=== PATIENT | female | born 1935 | race Caucasian/White ===

== ENCOUNTER 2016-12-23 00:22 | Observation (INO) | payer MEDICARE, MEDICAID ==
[2016-12-23] MEDS ORDERED: Ondansetron 4 MG/2 ML SDV IVPUSH ONE ×4 (00:41→06:37)
[2016-12-23] MEDS ORDERED: Sodium Chloride 0.9% 1,000 ML IV SCH (00:45)
[2016-12-23] MEDS ORDERED: Labetalol 20 MG/4 ML Syringe IVPUSH ONE (00:52)
[2016-12-23] MEDS ORDERED: NS + KCl 20mEq/L 1,000 ML IV SCH ×2 (02:00→06:30)
[2016-12-23] MEDS ORDERED: methylPREDNISolone Sodium Succinate 125 MG/2 ML SDV IVPUSH ONE (03:36)
[2016-12-23] MEDS ORDERED: Amoxicillin/Clavulanate K 875-125 MG Tab PO ONE (05:54)
[2016-12-23] MEDS ORDERED: Sodium Chloride 0.45% with KCl 1,000 ML IV SCH (06:15)
--- NOTE | 2016-12-23 06:30 | EDM.PDOC ---
ED HPI GENERAL MEDICAL PROBLEM - General Chief Complaint: Neuro Symptoms/Deficits Stated Complaint: MEDICAL VIA [facility] Time Seen by Provider: 12/23/16 00:30 Source of Information: Reports: Patient, [facility] Records History Limitations: Reports: Physical Impairment (hearing loss) - History of Present Illness INITIAL COMMENTS - FREE TEXT/NARRATIVE: History of present illness: [81-year-old female presenting from [facility] with sudden loss of hearing in her left ear. She usually cannot hear out of her right ear with a history of mastoid surgery on that one at some point. This came on according to the care center right after she received some Imodium. Whether that was causative I am uncertain but that is one possibility. 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 While here was noted that her abdomen was quite distended and that she was periodically vomiting and that her blood pressure was very erratic running quite high at times and then suddenly dropping. She does not become hypotensive though. I treated one of her high blood pressure readings with labetalol once and it came right down. In reviewing her medical records from the correction she does have a history of ulcerative colitis and intermittent A. 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 We've been communicating with her by writing notes to her which she can read and she denies being in pain. She's received IV fluids and intermittent doses of Zofran for her vomiting. Review of systems: As per history of present illness and below otherwise all systems reviewed and negative. Past medical history: As per history of present illness and as reviewed below otherwise noncontributory. Surgical history: As per history of present illness and as reviewed below otherwise noncontributory. Social history: No reported history of drug or alcohol abuse. Family history: As per history of present illness and as reviewed below otherwise noncontributory. Physical exam: HEENT: Atraumatic, normocephalic, pupils reactive, negative for conjunctival pallor or scleral icterus, mucous membranes moist, throat clear, neck supple, nontender, trachea midline. TMs both fusion unremarkable Lungs: Clear to auscultation, breath sounds equal bilaterally Heart: S1S2, regular, Abdomen: Soft and distended with hypoactive bowel sounds with no definitive tenderness to palpation Pelvis: Stable nontender. Genitourinary: Deferred. Rectal: Deferred. Extremities:She does display bilateral pitting edema left greater than right she is on warfarin and therapeutic Neuro: Awake, alert, Exam nonfocal other than this acute left hearing loss Diagnostics: [She is received a CBC which is unremarkable complete metabolic panel which is showing little bit of hypokalemia with a potassium of 3.1 she's had a head CT which is unremarkable she's had an abdominal pelvic CT without contrast which is showing mild left abdominal mesenteric fat stranding likely infectious or inflammatory in nature and also cholelithiasis with no evidence of cholecystitis at least on the CT report. Urinalysis is unremarkable] Therapeutics: [She has been receiving IV fluids while here in intermittent doses of Zofran] Impression: [Acute sudden left hearing loss Evidence for inflammatory versus infectious bowel disease on CT Cholelithiasis] Plan: [I spoke with Dr. Avila patient will be admitted and treated for her inflammatory bowel process and continued IV fluids will be provided along with intermittent doses of Zofran. Further workup may be useful and indicated.] Definitive disposition and diagnosis as appropriate pending reevaluation and review of above. denies pain Pain Score (Numeric/FACES): 0 - Related Data Allergies Allergy/AdvReac Type Severity Reaction Status Date / Time amoxicillin Allergy Other Verified 12/23/16 00:39 Home Meds: Home Meds Ceravite 1 tab PO DAILY 12/23/16 [History] Cyanocobalamin (Vitamin B-12) [Cyanocobalamin Injection] 1,000 mcg IM ASDIRECTED 12/23/16 [History] Lidocaine HCl [Aspercreme] 1 applic TOP BID 12/23/16 [History] Losartan/Hydrochlorothiazide [Losartan-HCTZ 100-12.5 MG] 1 tab PO DAILY [History] Mesalamine [Delzicol] 400 mg PO TID 12/23/16 [History] RX: Acetaminophen [Tylenol Extra Strength] 1,000 mg PO DAILY 12/23/16 [History] RX: Aspirin [Adult Low Dose Aspirin EC] 81 mg PO DAILY 12/23/16 [History] RX: Calcium Carbonate/Vitamin D3 [Calcium 600 + Vit D 400 Softgl] 1 tab PO BID 12/23/16 [History] RX: Loratadine 10 mg PO DAILY 12/23/16 [History] RX: Potassium Chloride 20 meq PO BID 12/23/16 [History] RX: Ranitidine [Zantac] 150 mg PO DAILY 12/23/16 [History] RX: Tamsulosin HCl [Flomax] 0.4 mg PO DAILY 12/23/16 [History] RX: Warfarin [Coumadin] 5 mg PO ASDIRECTED 12/23/16 [History] RX: Warfarin [Coumadin] 7.5 mg PO ASDIRECTED 12/23/16 [History] RX: risperiDONE 0.5 mg PO TID 12/23/16 [History] Vit C/[place] Ac/Lut/Copper/ZnOx [Preservision Lutein Softgel] 2 tab PO DAILY 12/23 [History] Past Medical History HEENT History: Reports: Hard of Hearing, Impaired Vision, Macular Degeneration, Other (See Below) 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 Cardiovascular History: Reports: Blood Clots/VTE/DVT, Hypertension Gastrointestinal History: Reports: Other (See Below) Other Gastrointestinal History: ulcerative colitis Genitourinary History: Reports: Urinary Incontinence 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: Musculoskeletal History: Reports: Osteoarthritis, Other (See Below) Other Musculoskeletal History: 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 Psychiatric History: Reports: Other (See Below) Other Psychiatric History: schizo Affective disorder Hematologic History: Reports: B12 Deficiency - Past Surgical History HEENT Surgical History: Reports: None, Other (See Below) Other HEENT Surgeries/Procedures: right mastoidectomy Neurological Surgical History: Reports: Scoliosis Musculoskeletal Surgical History: Reports: Knee Replacement, Other (See Below) Other Musculoskeletal Surgeries/Procedures:: right knee replacement Social & Family History - Tobacco Use Smoking Status *Q: Unknown Ever Smoked - Recreational Drug Use Recreational Drug Use: No ED ROS GENERAL - Review of Systems Review Of Systems: ROS reveals no pertinent complaints other than HPI. ED EXAM, NEURO - Physical Exam Exam: See Below Course - Vital Signs Last Recorded V/S: Last Vital Signs Temp 35.6 C 12/23/16 05:08 Pulse 83 12/23/16 05:08 Resp 16 12/23/16 05:08 BP 193/103 H 12/23/16 05:08 Pulse Ox 94 L 12/23/16 05:08 - Orders/Labs/Meds Orders: Active Orders 24 hr Category Date Time Status EKG Documentation Completion [RC] ASDIRECTED Care 12/23/16 00:32 Active Abdomen Pelvis wo Cont [CT] Stat Exams 12/23/16 04:12 Taken Chest 1V Frontal [CR] Stat Exams 12/23/16 00:31 Taken Head wo Cont [CT] Stat Exams 12/23/16 00:29 Taken CORTISOL [REF] Stat Lab 12/23/16 00:20 Received LYME AB SCREEN RFLX [REF] Stat Lab 12/23/16 00:38 Received Sodium Chloride 0.9% with KCl 20 mEq @ 75 mL/Hr (1000 Med 12/23/16 06:30 Ordered mL) NS + KCl 20mEq/L [Normal Saline with 20 mEq KCl] 1,000 ml IV ASDIRECTED EKG 12 Lead [EK] Stat Ther 12/23/16 00:31 Ordered Medication Orders Potassium Chloride/Sodium Chloride (Normal Saline With 20 Meq Kcl) 1,000 mls @ 75 mls/hr IV ASDIRECTED ATA Last Admin: 12/23/16 06:25 Dose: 75 mls/hr Labs: Laboratory Tests 12/23/16 12/23/16 12/23/16 Range/Units 00:20 00:20 00:20 WBC 7.1 (4.5-11.0) K/uL RBC 4.45 (3.30-5.50) M/uL Hgb 13.3 (12.0-15.0) g/dL Hct 40.0 (36.0-48.0) % MCV 90 (80-98) fL MCH 30 (27-31) pg MCHC 33 (32-36) % Plt Count 208 (150-400) K/uL Neut % (Auto) 45 (36-66) % Lymph % (Auto) 39 (24-44) % [place] % (Auto) 12 H (2-6) % Eos % (Auto) 4 (2-4) % Baso % (Auto) 1 (0-1) % ESR (0-25) mm/hr PT 32.0 H (9.5-12.0) sec INR 2.86 H (0.80-1.20) D-Dimer, Quantitative (0.0-400.0) ng/mL Sodium 134 L (140-148) mmol/L Potassium 3.1 L (3.6-5.2) mmol/L Chloride 95 L (100-108) mmol/L Carbon Dioxide 31 (21-32) mmol/L Anion Gap 11.1 (5.0-14.0) mmol/L BUN 16 (7-18) mg/dL Creatinine 0.7 (0.6-1.0) mg/dL Est Cr Clr Drug Dosing TNP Estimated GFR (MDRD) > 60 (>60) Glucose 114 H (74-106) mg/dL Lactic Acid (0.4-2.0) mmol/L Calcium 9.3 (8.5-10.1) mg/dL Total Bilirubin 0.2 (0.2-1.0) mg/dL AST 26 (15-37) U/L ALT 2 L (12-78) U/L Alkaline Phosphatase 86 (46-116) U/L C-Reactive Protein (0.0-0.3) mg/dL Total Protein 7.7 (6.4-8.2) g/dL Albumin 3.5 (3.4-5.0) g/dL Globulin 4.2 H (2.3-3.5) g/dL Albumin/Globulin Ratio 0.8 L (1.2-2.2) Amylase (25-115) U/L Lipase (73-393) U/L TSH, Ultra Sensitive (0.358-3.740) uIU/mL Urine Color Urine Appearance Urine pH (4.5-8.0) Ur Specific [place] (1.008-1.030) Urine Protein (NEGATIVE) mg/dL Urine Glucose (UA) (NEGATIVE) mg/dL Urine Ketones (NEGATIVE) mg/dL Urine Occult Blood (NEGATIVE) Urine Nitrite (NEGATIVE) Urine Bilirubin (NEGATIVE) Urine Urobilinogen (NORMAL) mg/dL Ur Leukocyte Esterase (NEGATIVE) Urine RBC (0-5) Urine WBC (0-5) Ur Epithelial Cells Amorphous Sediment Urine Bacteria Urine Mucus Salicylates (2.0-20.0) mg/dL Urine Opiates Screen (NEGATIVE) Ur Oxycodone Screen (NEGATIVE) Urine Methadone Screen (NEGATIVE) Ur Propoxyphene Screen (NEGATIVE) Acetaminophen (10.0-30.0) ug/mL Ur Barbiturates Screen (NEGATIVE) Ur Tricyclics Screen (NEGATIVE) Ur Phencyclidine Scrn (NEGATIVE) Ur Amphetamine Screen (NEGATIVE) U Methamphetamines Scrn (NEGATIVE) Urine MDMA Screen (NEGATIVE) U Benzodiazepines Scrn (NEGATIVE) U Cocaine Metab Screen (NEGATIVE) U Marijuana (THC) Screen (NEGATIVE) 12/23/16 12/23/16 12/23/16 Range/Units 00:20 00:20 00:20 WBC (4.5-11.0) K/uL RBC (3.30-5.50) M/uL Hgb (12.0-15.0) g/dL Hct (36.0-48.0) % MCV (80-98) fL MCH (27-31) pg MCHC (32-36) % Plt Count (150-400) K/uL Neut % (Auto) (36-66) % Lymph % (Auto) (24-44) % [place] % (Auto) (2-6) % Eos % (Auto) (2-4) % Baso % (Auto) (0-1) % ESR (0-25) mm/hr PT (9.5-12.0) sec INR (0.80-1.20) D-Dimer, Quantitative < 100 (0.0-400.0) ng/mL Sodium (140-148) mmol/L Potassium (3.6-5.2) mmol/L Chloride (100-108) mmol/L Carbon Dioxide (21-32) mmol/L Anion Gap (5.0-14.0) mmol/L BUN (7-18) mg/dL Creatinine (0.6-1.0) mg/dL Est Cr Clr Drug Dosing Estimated GFR (MDRD) (>60) Glucose (74-106) mg/dL Lactic Acid 1.6 (0.4-2.0) mmol/L Calcium (8.5-10.1) mg/dL Total Bilirubin (0.2-1.0) mg/dL AST (15-37) U/L ALT (12-78) U/L Alkaline Phosphatase (46-116) U/L C-Reactive Protein 0.18 (0.0-0.3) mg/dL Total Protein (6.4-8.2) g/dL Albumin (3.4-5.0) g/dL Globulin (2.3-3.5) g/dL Albumin/Globulin Ratio (1.2-2.2) Amylase (25-115) U/L Lipase (73-393) U/L TSH, Ultra Sensitive (0.358-3.740) uIU/mL Urine Color Urine Appearance Urine pH (4.5-8.0) Ur Specific [place] (1.008-1.030) Urine Protein (NEGATIVE) mg/dL Urine Glucose (UA) (NEGATIVE) mg/dL Urine Ketones (NEGATIVE) mg/dL Urine Occult Blood (NEGATIVE) Urine Nitrite (NEGATIVE) Urine Bilirubin (NEGATIVE) Urine Urobilinogen (NORMAL) mg/dL Ur Leukocyte Esterase (NEGATIVE) Urine RBC (0-5) Urine WBC (0-5) Ur Epithelial Cells Amorphous Sediment Urine Bacteria Urine Mucus Salicylates (2.0-20.0) mg/dL Urine Opiates Screen (NEGATIVE) Ur Oxycodone Screen (NEGATIVE) Urine Methadone Screen (NEGATIVE) Ur Propoxyphene Screen (NEGATIVE) Acetaminophen 0.0 L (10.0-30.0) ug/mL Ur Barbiturates Screen (NEGATIVE) Ur Tricyclics Screen (NEGATIVE) Ur Phencyclidine Scrn (NEGATIVE) Ur Amphetamine Screen (NEGATIVE) U Methamphetamines Scrn (NEGATIVE) Urine MDMA Screen (NEGATIVE) U Benzodiazepines Scrn (NEGATIVE) U Cocaine Metab Screen (NEGATIVE) U Marijuana (THC) Screen (NEGATIVE) 12/23/16 12/23/16 12/23/16 Range/Units 00:20 00:20 00:20 WBC (4.5-11.0) K/uL RBC (3.30-5.50) M/uL Hgb (12.0-15.0) g/dL Hct (36.0-48.0) % MCV (80-98) fL MCH (27-31) pg MCHC (32-36) % Plt Count (150-400) K/uL Neut % (Auto) (36-66) % Lymph % (Auto) (24-44) % [place] % (Auto) (2-6) % Eos % (Auto) (2-4) % Baso % (Auto) (0-1) % ESR (0-25) mm/hr PT (9.5-12.0) sec INR (0.80-1.20) D-Dimer, Quantitative (0.0-400.0) ng/mL Sodium (140-148) mmol/L Potassium (3.6-5.2) mmol/L Chloride (100-108) mmol/L Carbon Dioxide (21-32) mmol/L Anion Gap (5.0-14.0) mmol/L BUN (7-18) mg/dL Creatinine (0.6-1.0) mg/dL Est Cr Clr Drug Dosing Estimated GFR (MDRD) (>60) Glucose (74-106) mg/dL Lactic Acid (0.4-2.0) mmol/L Calcium (8.5-10.1) mg/dL Total Bilirubin (0.2-1.0) mg/dL AST (15-37) U/L ALT (12-78) U/L Alkaline Phosphatase (46-116) U/L C-Reactive Protein (0.0-0.3) mg/dL Total Protein (6.4-8.2) g/dL Albumin (3.4-5.0) g/dL Globulin (2.3-3.5) g/dL Albumin/Globulin Ratio (1.2-2.2) Amylase 46 (25-115) U/L Lipase 240 (73-393) U/L TSH, Ultra Sensitive 5.870 H (0.358-3.740) uIU/mL Urine Color Urine Appearance Urine pH (4.5-8.0) Ur Specific [place] (1.008-1.030) Urine Protein (NEGATIVE) mg/dL Urine Glucose (UA) (NEGATIVE) mg/dL Urine Ketones (NEGATIVE) mg/dL Urine Occult Blood (NEGATIVE) Urine Nitrite (NEGATIVE) Urine Bilirubin (NEGATIVE) Urine Urobilinogen (NORMAL) mg/dL Ur Leukocyte Esterase (NEGATIVE) Urine RBC (0-5) Urine WBC (0-5) Ur Epithelial Cells Amorphous Sediment Urine Bacteria Urine Mucus Salicylates 2.7 (2.0-20.0) mg/dL Urine Opiates Screen (NEGATIVE) Ur Oxycodone Screen (NEGATIVE) Urine Methadone Screen (NEGATIVE) Ur Propoxyphene Screen (NEGATIVE) Acetaminophen (10.0-30.0) ug/mL Ur Barbiturates Screen (NEGATIVE) Ur Tricyclics Screen (NEGATIVE) Ur Phencyclidine Scrn (NEGATIVE) Ur Amphetamine Screen (NEGATIVE) U Methamphetamines Scrn (NEGATIVE) Urine MDMA Screen (NEGATIVE) U Benzodiazepines Scrn (NEGATIVE) U Cocaine Metab Screen (NEGATIVE) U Marijuana (THC) Screen (NEGATIVE) 12/23/16 12/23/16 12/23/16 Range/Units 00:31 02:05 02:05 WBC (4.5-11.0) K/uL RBC (3.30-5.50) M/uL Hgb (12.0-15.0) g/dL Hct (36.0-48.0) % MCV (80-98) fL MCH (27-31) pg MCHC (32-36) % Plt Count (150-400) K/uL Neut % (Auto) (36-66) % Lymph % (Auto) (24-44) % [place] % (Auto) (2-6) % Eos % (Auto) (2-4) % Baso % (Auto) (0-1) % ESR 14 (0-25) mm/hr PT (9.5-12.0) sec INR (0.80-1.20) D-Dimer, Quantitative (0.0-400.0) ng/mL Sodium (140-148) mmol/L Potassium (3.6-5.2) mmol/L Chloride (100-108) mmol/L Carbon Dioxide (21-32) mmol/L Anion Gap (5.0-14.0) mmol/L BUN (7-18) mg/dL Creatinine (0.6-1.0) mg/dL Est Cr Clr Drug Dosing Estimated GFR (MDRD) (>60) Glucose (74-106) mg/dL Lactic Acid (0.4-2.0) mmol/L Calcium (8.5-10.1) mg/dL Total Bilirubin (0.2-1.0) mg/dL AST (15-37) U/L ALT (12-78) U/L Alkaline Phosphatase (46-116) U/L C-Reactive Protein (0.0-0.3) mg/dL Total Protein (6.4-8.2) g/dL Albumin (3.4-5.0) g/dL Globulin (2.3-3.5) g/dL Albumin/Globulin Ratio (1.2-2.2) Amylase (25-115) U/L Lipase (73-393) U/L TSH, Ultra Sensitive (0.358-3.740) uIU/mL Urine Color Yellow Urine Appearance Clear Urine pH 8.0 (4.5-8.0) Ur Specific [place] 1.015 (1.008-1.030) Urine Protein 30 H (NEGATIVE) mg/dL Urine Glucose (UA) Normal (NEGATIVE) mg/dL Urine Ketones Negative (NEGATIVE) mg/dL Urine Occult Blood Moderate (NEGATIVE) Urine Nitrite Negative (NEGATIVE) Urine Bilirubin Negative (NEGATIVE) Urine Urobilinogen Normal (NORMAL) mg/dL Ur Leukocyte Esterase Negative (NEGATIVE) Urine RBC 0-5 (0-5) Urine WBC 0-5 (0-5) Ur Epithelial Cells Rare Amorphous Sediment Not seen Urine Bacteria Few Urine Mucus Not seen Salicylates (2.0-20.0) mg/dL Urine Opiates Screen Negative (NEGATIVE) Ur Oxycodone Screen Negative (NEGATIVE) Urine Methadone Screen Negative (NEGATIVE) Ur Propoxyphene Screen Negative (NEGATIVE) Acetaminophen (10.0-30.0) ug/mL Ur Barbiturates Screen Negative (NEGATIVE) Ur Tricyclics Screen Negative (NEGATIVE) Ur Phencyclidine Scrn Negative (NEGATIVE) Ur Amphetamine Screen Negative (NEGATIVE) U Methamphetamines Scrn Negative (NEGATIVE) Urine MDMA Screen Negative (NEGATIVE) U Benzodiazepines Scrn Negative (NEGATIVE) U Cocaine Metab Screen Negative (NEGATIVE) U Marijuana (THC) Screen Negative (NEGATIVE) Meds: Medications Generic Name Dose Route Start Last Admin Trade Name Freq PRN Reason Stop Dose Admin Potassium Chloride/Sodium Chloride 1,000 mls @ 75 mls/hr 12/23/16 06:30 12/23 06:25 Normal Saline With 20 Meq Kcl IV 75 mls/hr ASDIRECTED ATA Administration Discontinued Medications Generic Name Dose Route Start Last Admin Trade Name Freq PRN Reason Stop Dose Admin Amoxicillin/Clavulanate Potassium 1 tab 12/23/16 05:54 12/23/16 06:25 Augmentin 875 Mg/125 Mg PO 12/23/16 05:55 Not Given ONETIME ONE Sodium Chloride 1,000 mls @ 125 mls/hr 12/23/16 00:45 12/23/16 01:08 Normal Saline IV 125 mls/hr ASDIRECTED ATA Administration Potassium Chloride/Sodium Chloride 1,000 mls @ 300 mls/hr 12/23/16 02:00 02:58 Normal Saline With 20 Meq Kcl IV 300 mls/hr ASDIRECTED ATA Administration Potassium Chloride/Sodium Chloride 1,000 mls @ 100 mls/hr 12/23/16 06:15 1/2 Ns With 20 Meq Kcl IV ASDIRECTED ATA Labetalol HCl 20 mg 12/23/16 00:52 12/23/16 01:11 Normodyne IVPUSH 12/23/16 00:53 20 mg NOW ONE Administration Protocol Methylprednisolone Sodium Succinate 62.5 mg 12/23/16 03:36 12/23/16 03:49 Solu-Medrol IVPUSH 12/23/16 03:37 62.5 mg ONETIME ONE Administration Ondansetron HCl 4 mg 12/23/16 00:41 12/23/16 00:47 Zofran IVPUSH 12/23/16 00:42 4 mg ONETIME ONE Administration Ondansetron HCl 4 mg 12/23/16 01:49 12/23/16 02:47 Zofran IVPUSH 12/23/16 01:50 4 mg ONETIME ONE Administration Ondansetron HCl 4 mg 12/23/16 04:34 12/23/16 04:48 Zofran IVPUSH 12/23/16 04:35 4 mg ONETIME ONE Administration Departure - Departure Time of Disposition: 06:33 Disposition: Admitted As Inpatient 65 Condition: Fair Clinical Impression: Sudden idiopathic hearing loss of left ear Qualifiers: Contralateral hearing status: restricted hearing on contralateral side Qualified Code(s): H91.22 - Sudden idiopathic hearing loss, left ear Inflammatory bowel disease (ulcerative colitis) Qualifiers: Ulcerative colitis location: other ulcerative colitis Digestive disease complication type: without complication Qualified Code(s): K51.80 - Other ulcerative colitis without complications Nausea and vomiting Qualifiers: Vomiting type: unspecified Vomiting Intractability: unspecified Qualified Code( s): R11.2 - Nausea with vomiting, unspecified - Discharge Information Forms: ED Department Discharge - My Orders Last 24 Hours: My Active Orders 12/23/16 00:20 CORTISOL [REF] Stat 12/23/16 00:29 Head wo Cont [CT] Stat 12/23/16 00:31 Chest 1V Frontal [CR] Stat EKG 12 Lead [EK] Stat 12/23/16 00:32 EKG Documentation Completion [RC] ASDIRECTED 12/23/16 00:38 LYME AB SCREEN RFLX [REF] Stat 12/23/16 04:12 Abdomen Pelvis wo Cont [CT] Stat 12/23/16 06:30 Sodium Chloride 0.9% with KCl 20 mEq @ 75 mL/Hr (1000 mL) NS + KCl 20mEq/L [ Normal Saline with 20 mEq KCl] 1,000 ml IV ASDIRECTED - Assessment/Plan Last 24 Hours: My Active Orders 12/23/16 00:20 CORTISOL [REF] Stat 12/23/16 00:29 Head wo Cont [CT] Stat 12/23/16 00:31 Chest 1V Frontal [CR] Stat EKG 12 Lead [EK] Stat 12/23/16 00:32 EKG Documentation Completion [RC] ASDIRECTED 12/23/16 00:38 LYME AB SCREEN RFLX [REF] Stat 12/23/16 04:12 Abdomen Pelvis wo Cont [CT] Stat 12/23/16 06:30 Sodium Chloride 0.9% with KCl 20 mEq @ 75 mL/Hr (1000 mL) NS + KCl 20mEq/L [ Normal Saline with 20 mEq KCl] 1,000 ml IV ASDIRECTED
--- NOTE | 2016-12-23 08:31 | PCM.HP ---
H&P History of Present Illness - General Date of Service: 12/23/16 Admit Problem/Dx: Admission Diagnosis/Problem Admission Diagnosis/Problem Vomiting Source of Information: Patient, Provider History Limitations: Reports: Other (hearing impairment) - History of Present Illness Initial Comments - Free Text/Narative: Jodee presented to the ER last night with concerns about loss of hearing in the left ear. History is difficult to gather because we have to use a pen and paper and it takes her a long time to read the questions and is not quite always sure how to respond. This started suddenly without preceding event. No return of hearing so she came in for evaluation. While in the ER she started vomiting and has continued to do so despite several doses of anti-emetic. She does not complain of abdominal pain at this time. No complaints of headache. No complaints of blurry vision. I do not see any new medications upon review of her list from the assisted living. Workup in the emergency room so far has been unremarkable as far as acute abnormalities. Laboratory testing is unremarkable. Head CT did not show any new acute pathology. CT of the abdomen and pelvis showed only some very mild inflammation of the fat surrounding an area of small bowel on the left side of the abdomen. No changes in the bowel or bowel wall thickening were noted. Blood pressures in the emergency room have been labile and she did require a dose of labetalol at one point. denies pain Pain Score (Numeric/FACES): 0 - Related Data Allergies/Adverse Reactions: Allergies Allergy/AdvReac Type Severity Reaction Status Date / Time amoxicillin Allergy Other Verified 12/23/16 00:39 Home Medications: Home Meds Acetaminophen [Tylenol Extra Strength] 1,000 mg PO DAILY 12/23/16 [History] Aspirin [Adult Low Dose Aspirin EC] 81 mg PO DAILY 12/23/16 [History] Calcium Carbonate/Vitamin D3 [Calcium 600 + Vit D 400 Softgl] 1 tab PO BID 12/23 [History] Ceravite 1 tab PO DAILY 12/23/16 [History] Cyanocobalamin (Vitamin B-12) [Cyanocobalamin Injection] 1,000 mcg IM ASDIRECTED 12/23/16 [History] Lidocaine HCl [Aspercreme] 1 applic TOP BID 12/23/16 [History] Loratadine 10 mg PO DAILY 12/23/16 [History] Losartan/Hydrochlorothiazide [Losartan-HCTZ 100-12.5 MG] 1 tab PO DAILY [History] Mesalamine [Delzicol] 400 mg PO TID 12/23/16 [History] Potassium Chloride 20 meq PO BID 12/23/16 [History] Ranitidine [Zantac] 150 mg PO DAILY 12/23/16 [History] Tamsulosin HCl [Flomax] 0.4 mg PO DAILY 12/23/16 [History] Vit C/[place] Ac/Lut/Copper/ZnOx [Preservision Lutein Softgel] 2 tab PO DAILY 12/23 [History] Warfarin [Coumadin] 5 mg PO ASDIRECTED 12/23/16 [History] Warfarin [Coumadin] 7.5 mg PO ASDIRECTED 12/23/16 [History] risperiDONE 0.5 mg PO TID 12/23/16 [History] Past Medical History HEENT History: Reports: Hard of Hearing, Impaired Vision, Macular Degeneration, Other (See Below) 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 Cardiovascular History: Reports: Blood Clots/VTE/DVT, Hypertension Gastrointestinal History: Reports: Other (See Below) Other Gastrointestinal History: ulcerative colitis Genitourinary History: Reports: Urinary Incontinence CLIENT SERVICES ASSISTANT History: Reports: Musculoskeletal History: Reports: Osteoarthritis, Other (See Below) Other Musculoskeletal History: 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 Psychiatric History: Reports: Other (See Below) Other Psychiatric History: schizo Affective disorder Hematologic History: Reports: B12 Deficiency - Past Surgical History HEENT Surgical History: Reports: None, Other (See Below) Other HEENT Surgeries/Procedures: right mastoidectomy Neurological Surgical History: Reports: Scoliosis Musculoskeletal Surgical History: Reports: Knee Replacement, Other (See Below) Other Musculoskeletal Surgeries/Procedures:: right knee replacement Social & Family History - Family History HEENT: Denies: Hearing Impairment - Tobacco Use Smoking Status *Q: Unknown Ever Smoked - Alcohol Use Alcohol Use History: No - Recreational Drug Use Recreational Drug Use: No H&P Review of Systems - Review of Systems: Review Of Systems: See Below Free Text/Narrative: A complete 12 point review of systems was obtained. Pertinent positives and negatives are noted in the history of present illness. All other systems were reviewed and were negative except as noted. Exam - Exam Exam: See Below - Vital Signs Vital Signs: Last Vital Signs Temp 36.5 C 12/23/16 06:59 Pulse 83 12/23/16 05:08 Resp 16 12/23/16 06:59 BP 158/63 H 12/23/16 06:59 Pulse Ox 94 L 12/23/16 06:59 Weight: 75.75 kg - Exam Quality Assessment: No: Supplemental Oxygen General: Alert, Oriented, Cooperative. No: Mild Distress HEENT: Conjunctiva Clear, Posterior Pharynx Clear. No: Mucosa Moist & [place] (dry ), Scleral Icterus Neck: Supple, Trachea Midline. No: Lymphadenopathy Lungs: Normal Respiratory Effort Cardiovascular: Regular Rate, Regular Rhythm. No: Systolic Murmur Abdomen: Normal Bowel Sounds, Soft, Distention (mild), Tenderness (mild right sided). No: Mass Back Exam: Normal Inspection, Full Range of Motion Extremities: Normal Pulses, Edema (mild ankle edema left > right ). No: Cyanosis Peripheral Pulses: 2+: Dorsalis Pedis (L), Dorsalis Pedis (R) Skin: Warm, Dry Neuro Extensive - Mental Status: Alert, Normal Mood/Affect, Slow Response to Commands Neuro Extensive - Motor, Sensory, Reflexes: CN II-XII Intact. No: Dysarthria, Abnormal Motor, Tremor Psychiatric: Alert, Anxious - Patient Data Lab Results Last 24 hrs: Laboratory Results - last 24 hr 12/23/16 12/23/16 12/23/16 Range/Units 00:20 00:20 00:20 WBC 7.1 (4.5-11.0) K/uL RBC 4.45 (3.30-5.50) M/uL Hgb 13.3 (12.0-15.0) g/dL Hct 40.0 (36.0-48.0) % MCV 90 (80-98) fL MCH 30 (27-31) pg MCHC 33 (32-36) % Plt Count 208 (150-400) K/uL Neut % (Auto) 45 (36-66) % Lymph % (Auto) 39 (24-44) % [place] % (Auto) 12 H (2-6) % Eos % (Auto) 4 (2-4) % Baso % (Auto) 1 (0-1) % ESR (0-25) mm/hr PT 32.0 H (9.5-12.0) sec INR 2.86 H (0.80-1.20) D-Dimer, Quantitative (0.0-400.0) ng/mL Sodium 134 L (140-148) mmol/L Potassium 3.1 L (3.6-5.2) mmol/L Chloride 95 L (100-108) mmol/L Carbon Dioxide 31 (21-32) mmol/L Anion Gap 11.1 (5.0-14.0) mmol/L BUN 16 (7-18) mg/dL Creatinine 0.7 (0.6-1.0) mg/dL Est Cr Clr Drug Dosing TNP Estimated GFR (MDRD) > 60 (>60) Glucose 114 H (74-106) mg/dL Lactic Acid (0.4-2.0) mmol/L Calcium 9.3 (8.5-10.1) mg/dL Total Bilirubin 0.2 (0.2-1.0) mg/dL AST 26 (15-37) U/L ALT 2 L (12-78) U/L Alkaline Phosphatase 86 (46-116) U/L C-Reactive Protein (0.0-0.3) mg/dL Total Protein 7.7 (6.4-8.2) g/dL Albumin 3.5 (3.4-5.0) g/dL Globulin 4.2 H (2.3-3.5) g/dL Albumin/Globulin Ratio 0.8 L (1.2-2.2) Amylase (25-115) U/L Lipase (73-393) U/L TSH, Ultra Sensitive (0.358-3.740) uIU/mL Urine Color Urine Appearance Urine pH (4.5-8.0) Ur Specific [place] (1.008-1.030) Urine Protein (NEGATIVE) mg/dL Urine Glucose (UA) (NEGATIVE) mg/dL Urine Ketones (NEGATIVE) mg/dL Urine Occult Blood (NEGATIVE) Urine Nitrite (NEGATIVE) Urine Bilirubin (NEGATIVE) Urine Urobilinogen (NORMAL) mg/dL Ur Leukocyte Esterase (NEGATIVE) Urine RBC (0-5) Urine WBC (0-5) Ur Epithelial Cells Amorphous Sediment Urine Bacteria Urine Mucus Salicylates (2.0-20.0) mg/dL Urine Opiates Screen (NEGATIVE) Ur Oxycodone Screen (NEGATIVE) Urine Methadone Screen (NEGATIVE) Ur Propoxyphene Screen (NEGATIVE) Acetaminophen (10.0-30.0) ug/mL Ur Barbiturates Screen (NEGATIVE) Ur Tricyclics Screen (NEGATIVE) Ur Phencyclidine Scrn (NEGATIVE) Ur Amphetamine Screen (NEGATIVE) U Methamphetamines Scrn (NEGATIVE) Urine MDMA Screen (NEGATIVE) U Benzodiazepines Scrn (NEGATIVE) U Cocaine Metab Screen (NEGATIVE) U Marijuana (THC) Screen (NEGATIVE) 12/23/16 12/23/16 12/23/16 Range/Units 00:20 00:20 00:20 WBC (4.5-11.0) K/uL RBC (3.30-5.50) M/uL Hgb (12.0-15.0) g/dL Hct (36.0-48.0) % MCV (80-98) fL MCH (27-31) pg MCHC (32-36) % Plt Count (150-400) K/uL Neut % (Auto) (36-66) % Lymph % (Auto) (24-44) % [place] % (Auto) (2-6) % Eos % (Auto) (2-4) % Baso % (Auto) (0-1) % ESR (0-25) mm/hr PT (9.5-12.0) sec INR (0.80-1.20) D-Dimer, Quantitative < 100 (0.0-400.0) ng/mL Sodium (140-148) mmol/L Potassium (3.6-5.2) mmol/L Chloride (100-108) mmol/L Carbon Dioxide (21-32) mmol/L Anion Gap (5.0-14.0) mmol/L BUN (7-18) mg/dL Creatinine (0.6-1.0) mg/dL Est Cr Clr Drug Dosing Estimated GFR (MDRD) (>60) Glucose (74-106) mg/dL Lactic Acid 1.6 (0.4-2.0) mmol/L Calcium (8.5-10.1) mg/dL Total Bilirubin (0.2-1.0) mg/dL AST (15-37) U/L ALT (12-78) U/L Alkaline Phosphatase (46-116) U/L C-Reactive Protein 0.18 (0.0-0.3) mg/dL Total Protein (6.4-8.2) g/dL Albumin (3.4-5.0) g/dL Globulin (2.3-3.5) g/dL Albumin/Globulin Ratio (1.2-2.2) Amylase (25-115) U/L Lipase (73-393) U/L TSH, Ultra Sensitive (0.358-3.740) uIU/mL Urine Color Urine Appearance Urine pH (4.5-8.0) Ur Specific [place] (1.008-1.030) Urine Protein (NEGATIVE) mg/dL Urine Glucose (UA) (NEGATIVE) mg/dL Urine Ketones (NEGATIVE) mg/dL Urine Occult Blood (NEGATIVE) Urine Nitrite (NEGATIVE) Urine Bilirubin (NEGATIVE) Urine Urobilinogen (NORMAL) mg/dL Ur Leukocyte Esterase (NEGATIVE) Urine RBC (0-5) Urine WBC (0-5) Ur Epithelial Cells Amorphous Sediment Urine Bacteria Urine Mucus Salicylates (2.0-20.0) mg/dL Urine Opiates Screen (NEGATIVE) Ur Oxycodone Screen (NEGATIVE) Urine Methadone Screen (NEGATIVE) Ur Propoxyphene Screen (NEGATIVE) Acetaminophen 0.0 L (10.0-30.0) ug/mL Ur Barbiturates Screen (NEGATIVE) Ur Tricyclics Screen (NEGATIVE) Ur Phencyclidine Scrn (NEGATIVE) Ur Amphetamine Screen (NEGATIVE) U Methamphetamines Scrn (NEGATIVE) Urine MDMA Screen (NEGATIVE) U Benzodiazepines Scrn (NEGATIVE) U Cocaine Metab Screen (NEGATIVE) U Marijuana (THC) Screen (NEGATIVE) 12/23/16 12/23/16 12/23/16 Range/Units 00:20 00:20 00:20 WBC (4.5-11.0) K/uL RBC (3.30-5.50) M/uL Hgb (12.0-15.0) g/dL Hct (36.0-48.0) % MCV (80-98) fL MCH (27-31) pg MCHC (32-36) % Plt Count (150-400) K/uL Neut % (Auto) (36-66) % Lymph % (Auto) (24-44) % [place] % (Auto) (2-6) % Eos % (Auto) (2-4) % Baso % (Auto) (0-1) % ESR (0-25) mm/hr PT (9.5-12.0) sec INR (0.80-1.20) D-Dimer, Quantitative (0.0-400.0) ng/mL Sodium (140-148) mmol/L Potassium (3.6-5.2) mmol/L Chloride (100-108) mmol/L Carbon Dioxide (21-32) mmol/L Anion Gap (5.0-14.0) mmol/L BUN (7-18) mg/dL Creatinine (0.6-1.0) mg/dL Est Cr Clr Drug Dosing Estimated GFR (MDRD) (>60) Glucose (74-106) mg/dL Lactic Acid (0.4-2.0) mmol/L Calcium (8.5-10.1) mg/dL Total Bilirubin (0.2-1.0) mg/dL AST (15-37) U/L ALT (12-78) U/L Alkaline Phosphatase (46-116) U/L C-Reactive Protein (0.0-0.3) mg/dL Total Protein (6.4-8.2) g/dL Albumin (3.4-5.0) g/dL Globulin (2.3-3.5) g/dL Albumin/Globulin Ratio (1.2-2.2) Amylase 46 (25-115) U/L Lipase 240 (73-393) U/L TSH, Ultra Sensitive 5.870 H (0.358-3.740) uIU/mL Urine Color Urine Appearance Urine pH (4.5-8.0) Ur Specific [place] (1.008-1.030) Urine Protein (NEGATIVE) mg/dL Urine Glucose (UA) (NEGATIVE) mg/dL Urine Ketones (NEGATIVE) mg/dL Urine Occult Blood (NEGATIVE) Urine Nitrite (NEGATIVE) Urine Bilirubin (NEGATIVE) Urine Urobilinogen (NORMAL) mg/dL Ur Leukocyte Esterase (NEGATIVE) Urine RBC (0-5) Urine WBC (0-5) Ur Epithelial Cells Amorphous Sediment Urine Bacteria Urine Mucus Salicylates 2.7 (2.0-20.0) mg/dL Urine Opiates Screen (NEGATIVE) Ur Oxycodone Screen (NEGATIVE) Urine Methadone Screen (NEGATIVE) Ur Propoxyphene Screen (NEGATIVE) Acetaminophen (10.0-30.0) ug/mL Ur Barbiturates Screen (NEGATIVE) Ur Tricyclics Screen (NEGATIVE) Ur Phencyclidine Scrn (NEGATIVE) Ur Amphetamine Screen (NEGATIVE) U Methamphetamines Scrn (NEGATIVE) Urine MDMA Screen (NEGATIVE) U Benzodiazepines Scrn (NEGATIVE) U Cocaine Metab Screen (NEGATIVE) U Marijuana (THC) Screen (NEGATIVE) 12/23/16 12/23/16 12/23/16 Range/Units 00:31 02:05 02:05 WBC (4.5-11.0) K/uL RBC (3.30-5.50) M/uL Hgb (12.0-15.0) g/dL Hct (36.0-48.0) % MCV (80-98) fL MCH (27-31) pg MCHC (32-36) % Plt Count (150-400) K/uL Neut % (Auto) (36-66) % Lymph % (Auto) (24-44) % [place] % (Auto) (2-6) % Eos % (Auto) (2-4) % Baso % (Auto) (0-1) % ESR 14 (0-25) mm/hr PT (9.5-12.0) sec INR (0.80-1.20) D-Dimer, Quantitative (0.0-400.0) ng/mL Sodium (140-148) mmol/L Potassium (3.6-5.2) mmol/L Chloride (100-108) mmol/L Carbon Dioxide (21-32) mmol/L Anion Gap (5.0-14.0) mmol/L BUN (7-18) mg/dL Creatinine (0.6-1.0) mg/dL Est Cr Clr Drug Dosing Estimated GFR (MDRD) (>60) Glucose (74-106) mg/dL Lactic Acid (0.4-2.0) mmol/L Calcium (8.5-10.1) mg/dL Total Bilirubin (0.2-1.0) mg/dL AST (15-37) U/L ALT (12-78) U/L Alkaline Phosphatase (46-116) U/L C-Reactive Protein (0.0-0.3) mg/dL Total Protein (6.4-8.2) g/dL Albumin (3.4-5.0) g/dL Globulin (2.3-3.5) g/dL Albumin/Globulin Ratio (1.2-2.2) Amylase (25-115) U/L Lipase (73-393) U/L TSH, Ultra Sensitive (0.358-3.740) uIU/mL Urine Color Yellow Urine Appearance Clear Urine pH 8.0 (4.5-8.0) Ur Specific [place] 1.015 (1.008-1.030) Urine Protein 30 H (NEGATIVE) mg/dL Urine Glucose (UA) Normal (NEGATIVE) mg/dL Urine Ketones Negative (NEGATIVE) mg/dL Urine Occult Blood Moderate (NEGATIVE) Urine Nitrite Negative (NEGATIVE) Urine Bilirubin Negative (NEGATIVE) Urine Urobilinogen Normal (NORMAL) mg/dL Ur Leukocyte Esterase Negative (NEGATIVE) Urine RBC 0-5 (0-5) Urine WBC 0-5 (0-5) Ur Epithelial Cells Rare Amorphous Sediment Not seen Urine Bacteria Few Urine Mucus Not seen Salicylates (2.0-20.0) mg/dL Urine Opiates Screen Negative (NEGATIVE) Ur Oxycodone Screen Negative (NEGATIVE) Urine Methadone Screen Negative (NEGATIVE) Ur Propoxyphene Screen Negative (NEGATIVE) Acetaminophen (10.0-30.0) ug/mL Ur Barbiturates Screen Negative (NEGATIVE) Ur Tricyclics Screen Negative (NEGATIVE) Ur Phencyclidine Scrn Negative (NEGATIVE) Ur Amphetamine Screen Negative (NEGATIVE) U Methamphetamines Scrn Negative (NEGATIVE) Urine MDMA Screen Negative (NEGATIVE) U Benzodiazepines Scrn Negative (NEGATIVE) U Cocaine Metab Screen Negative (NEGATIVE) U Marijuana (THC) Screen Negative (NEGATIVE) Result Diagrams: 12/23/16 00:20 12/23/16 16:00 Imaging Impressions Last 24 hrs: CXR - images personally reviewed - clear, no mass, infiltrate or chf Head CT - no acute changes, old infarct noted CT abd/pelvis - mild inflammation adjacent to small bowel in the left abdomen. no obstruction, no bowel wall thickening EKG INTERPRETATION EKG Date: 12/23/16 Rate (Beats/Min): 88 [place]: Normal P-Wave: Present QRS: Normal ST-T: Normal HI/PQ Interval: 1st degree av block *Q Meaningful Use (ADM) - VTE *Q VTE Criteria *Q: - VTE Risk Assess *Q Each Risk Factor Represents 1 Point: Swollen Legs, Current, Obesity (BMI greater than 30) Total Score 1 Point Risk Factors: 2 Each Risk Factor Represents 2 Points: None Total Score 2 Point Risk Factors: 0 Each Risk Factor Represents 3 Points: Age 75 Years or Greater Total Score 3 Point Risk Factors: 3 Each Risk Factor Represents 5 Points: None Total Score 5 Point Risk Factors: 0 Venous Thromboembolism Risk Factor Score *Q: 5 - Stroke *Q Stroke Criteria *Q: - AMI *Q AMI Criteria *Q: - Problem List (1) Nausea and vomiting SNOMED Code(s): 63406311 ICD Code: R11.2 - NAUSEA WITH VOMITING, UNSPECIFIED Status: Acute Current Visit: Yes Qualifiers: Vomiting type: unspecified Vomiting Intractability: unspecified Qualified Code(s): R11.2 - Nausea with vomiting, unspecified (2) Sudden idiopathic hearing loss of left ear SNOMED Code(s): 33681997 ICD Code: H91.22 - SUDDEN IDIOPATHIC HEARING LOSS, LEFT EAR Status: Acute Current Visit: Yes Qualifiers: Contralateral hearing status: restricted hearing on contralateral side Qualified Code(s): H91.22 - Sudden idiopathic hearing loss, left ear (3) Inflammatory bowel disease (ulcerative colitis) SNOMED Code(s): 83128270 ICD Code: K51.90 - ULCERATIVE COLITIS, UNSPECIFIED, WITHOUT COMPLICATIONS Status: Chronic Current Visit: Yes Qualifiers: Ulcerative colitis location: other ulcerative colitis Digestive disease complication type: without complication Qualified Code(s): K51.80 - Other ulcerative colitis without complications (4) Schizoaffective disorder SNOMED Code(s): 44272623 ICD Code: F25.9 - SCHIZOAFFECTIVE DISORDER, UNSPECIFIED Status: Chronic Current Visit: Yes Qualifiers: Schizoaffective disorder type: unspecified Qualified Code(s): F25.9 - Schizoaffective disorder, unspecified Problem List Initiated/Reviewed/Updated: Yes Orders Last 24hrs: Active Orders 24 hr Category Date Time Status Patient Status Manage Transfer [TRANSFER] Routine ADT 12/23/16 08:16 Ordered EKG Documentation Completion [RC] ASDIRECTED Care 12/23/16 00:32 Active Abdomen Pelvis wo Cont [CT] Stat Exams 12/23/16 04:12 Taken Chest 1V Frontal [CR] Stat Exams 12/23/16 00:31 Taken Head wo Cont [CT] Stat Exams 12/23/16 00:29 Taken CORTISOL [REF] Stat Lab 12/23/16 00:20 Received LYME AB SCREEN RFLX [REF] Stat Lab 12/23/16 00:38 Received T4 FREE [CHEM] Routine Lab 12/23/16 08:14 Ordered Dextrose 5%-0.9% NaCl with KCl [D5 NS with 20 mEq KCl] Med 12/23/16 08:15 Active 1,000 ml IV ASDIRECTED Resuscitation Status Routine Resus Stat 12/23/16 08:18 Ordered EKG 12 Lead [EK] Stat Ther 12/23/16 00:31 Ordered Medication Orders Potassium Chloride/Dextrose/Sod Cl (D5 Ns With 20 Meq Kcl) 1,000 mls @ 125 mls/ hr IV ASDIRECTED ATA Assessment/Plan Comment:: Assessment and plan - Sudden hearing loss left ear - physical examination is normal as far as inspection of the ear internally and externally. Head CT did not suggest acute pathology. As discussed below I suspect she has a viral syndrome and this could be part of it and hopefully will be temporary. -Management as below -Consider MRI tomorrow if not improving Nausea with vomiting - no significant abdominal pain. CT shows only some fat stranding in the abdomen around the small intestine. She does have a history of ulcerative colitis but has not had diarrhea and does not have changes on the CT scan. I'm suspicious that she has an enteritis type picture and hopefully this will resolve with symptom management and hydration. -IV fluids -Antinausea medications as needed -pain control if indicated -Continue management for chronic ulcerative colitis Accelerated hypertension - significant blood pressure elevation and did require labetalol in the emergency room. I suspect this is a combination of stress from the vomiting and probably dehydration. -IV fluids -Restart home medication -Monitor blood pressure closely I would expect that it should improve with management as below. Schizoaffective disorder - no behavior issues at this time. -Continue home medications as tolerated History of DVT/PE - chronically anticoagulated with warfarin. -Continue warfarin Maintenance issues - - DVT prophylaxis - warfarin - GI prophylaxis - PPI - Nutrition - clear liquids - Packer catheter - not indicated CODE STATUS - DNR/DNI Admission justification - patient will be referred to observation status for hydration, symptom management and close monitoring as well as potentially additional workup Disposition - anticipate discharge back to the assisted living in one or 2 days Primary care physician - Dr. Macario Avila M.D.
[2016-12-23] MEDS ORDERED: Ondansetron 4 MG/2 ML SDV IV PRN (08:57)
[2016-12-23] MEDS ORDERED: Ondansetron 4 MG Tab.DIS PO PRN (08:57)
[2016-12-23] MEDS ORDERED: Prochlorperazine 10 MG Tab PO PRN (08:57)
[2016-12-23] MEDS ORDERED: Polyethylene Glycol 3350 Powder 17 GM Packet PO PRN (08:57)
[2016-12-23] MEDS ORDERED: LORazepam 2 MG/ML MDV IVPUSH PRN (08:57)
[2016-12-23] MEDS ORDERED: Morphine 2 MG/ML Syringe IVPUSH PRN (08:57)
--- NOTE | 2016-12-23 09:00 | CR ---
Chest 1V Frontal HISTORY: sudden hearing loss COMPARISON: None FINDINGS: Portable chest, 0035 hours. Lungs appear clear and normally aerated. Cardiomediastinal silhouette is within normal limits for th e AP technique. Mild atherosclerotic calcification can be seen in the aortic arch. No vascular redis tribution or pleural fluid can be seen. There is an old healed fracture posterior left fifth rib. IMPRESSION: Atherosclerotic aorta. Old healed fracture posterior left fifth rib. No acute cardiopulmonary diseas e is identified.
[2016-12-23] MEDS: Dextrose 5%-0.9% NaCl with KCl 1,000 ML IV SCH ×2 (09:35→19:58)
[2016-12-23] MEDS: Aspirin 81 MG Tab.EC PO SCH (09:48)
[2016-12-23] MEDS ORDERED: Pantoprazole 40 MG Vial IV ONE (10:00)
[2016-12-23] MEDS ORDERED: Hydrochlorothiazide 12.5 MG Cap PO SCH (10:00)
[2016-12-23] MEDS ORDERED: Losartan 50 MG Tab PO SCH (10:00)
[2016-12-23] MEDS: Acetaminophen 500 MG Tab PO SCH ×3 (10:25→20:03)
[2016-12-23] MEDS: Tamsulosin 0.4 MG Cap.ER*POM PO SCH (12:05)
[2016-12-23] MEDS: RANITIDINE 150 MG PO SCH (12:06)
[2016-12-23] MEDS: risperiDONE 0.5 MG Tab PO SCH ×2 (12:06→15:48)
[2016-12-23] MEDS: methylPREDNISolone Sodium Succinate 125 MG/2 ML SDV IVPUSH SCH ×2 (12:10→19:58)
[2016-12-23] MEDS: Warfarin 5 MG Tab*POM PO SCH (15:04)
[2016-12-24] MEDS: methylPREDNISolone Sodium Succinate 125 MG/2 ML SDV IVPUSH SCH (03:25)
[2016-12-24] MEDS: Dextrose 5%-0.9% NaCl with KCl 1,000 ML IV SCH (04:25)
[2016-12-24] MEDS: Tamsulosin 0.4 MG Cap.ER*POM PO SCH (08:19)
[2016-12-24] MEDS: Aspirin 81 MG Tab.EC PO SCH (08:19)
[2016-12-24] MEDS: LOSARTAN PO SCH (08:20)
[2016-12-24] MEDS: HCTZ PO SCH (08:20)
[2016-12-24] MEDS: Acetaminophen 500 MG Tab PO SCH ×3 (08:20→20:06)
[2016-12-24] MEDS: RANITIDINE 150 MG PO SCH (08:21)
[2016-12-24] MEDS ORDERED: Potassium Chloride 20 MEQ Tab.ER PO ONE (10:00)
[2016-12-24] MEDS ORDERED: Meclizine 25 MG Tab PO PRN (14:25)
[2016-12-24] MEDS: Warfarin 5 MG Tab*POM PO SCH (14:34)
--- NOTE | 2016-12-24 14:50 | PCM.PN ---
- General Info Date of Service: 12/24/16 Functional Status: Reports: pain controlled, tolerating diet - Review of Systems General: Reports: Weakness Gastrointestinal: Denies: Vomiting Neurological: Reports: Dizziness Systems Review Comment:: Vomiting continued through the night but has improved this morning. She tolerated clear liquids for breakfast. She complains of dizziness described as things spinning around. She reports that her hearing has not returned and we continue to communicate by using. No complaints of abdominal pain. Blood pressure has been stable since yesterday evening. - Patient Data Vitals - most recent: Last Vital Signs Temp 36.2 C 12/24/16 11:08 Pulse 90 12/24/16 11:08 Resp 16 12/24/16 11:08 BP 190/95 H 12/24/16 11:08 Pulse Ox 98 12/24/16 11:08 Weight - most recent: 75.296 kg I&O - last 24 hours: Intake & Output 12/23/16 12/24/16 12/24/16 22:59 06:59 14:59 Intake Total 1452 1280 1180 Output Total 650 25 550 Balance 802 1255 630 Lab Results last 24 hrs: Laboratory Results - last 24 hr 12/23/16 12/24/16 12/24/16 Range/Units 16:00 05:40 05:40 WBC 15.3 H (4.5-11.0) K/uL RBC 4.34 (3.30-5.50) M/uL Hgb 12.5 (12.0-15.0) g/dL Hct 38.3 (36.0-48.0) % MCV 88 (80-98) fL MCH 29 (27-31) pg MCHC 33 (32-36) % Plt Count 239 (150-400) K/uL Sodium 136 L (140-148) mmol/L Potassium 3.5 L 3.4 L (3.6-5.2) mmol/L Chloride 101 (100-108) mmol/L Carbon Dioxide 23 (21-32) mmol/L Anion Gap 15.4 H (5.0-14.0) mmol/L BUN 18 (7-18) mg/dL Creatinine 1.0 (0.6-1.0) mg/dL Est Cr Clr Drug Dosing 32.77 mL/min Estimated GFR (MDRD) 53 L (>60) Glucose 151 H (74-106) mg/dL Calcium 8.2 L (8.5-10.1) mg/dL Med Orders - Current: Current Medications Acetaminophen (Tylenol Extra Strength) 1,000 mg PO TID [facility] Last Admin: 12/24/16 14:34 Dose: 1,000 mg Aspirin (Halfprin) 81 mg PO DAILY [facility] Last Admin: 12/24/16 08:19 Dose: 81 mg Lorazepam (Ativan) 0.5 mg IVPUSH Q6H PRN PRN Reason: Nausea/Vomiting Last Admin: 12/23/16 09:15 Dose: 0.5 mg Meclizine HCl (Antivert) 25 mg PO Q6H PRN PRN Reason: Dizziness Morphine Sulfate (Morphine) 2 mg IVPUSH Q2H PRN PRN Reason: Pain (severe 7-10) (Mesalamine 400 Mg)* (Pom*) 400 mg PO TID [facility] Last Admin: 12/24/16 14:35 Dose: 400 mg Losartan/Hctz 100mg/ (12.5mg *Pom*) 1 each PO DAILY [facility] Last Admin: 12/24/16 08:20 Dose: 1 each Ondansetron HCl (Zofran Odt) 4 mg PO Q6H PRN PRN Reason: Nausea able to take PO Ondansetron HCl (Zofran) 4 mg IV Q6H PRN PRN Reason: Nausea/Vomiting Last Admin: 12/24/16 01:07 Dose: 4 mg Polyethylene Glycol (Miralax) 17 gm PO DAILY PRN PRN Reason: Constipation Potassium Chloride (Klor-Con M20) 20 meq PO BID [facility] Last Admin: 12/24/16 08:19 Dose: 20 meq Prednisone (Prednisone) 20 mg PO BIDAC [facility] Prochlorperazine Maleate (Compazine) 10 mg PO Q8H PRN PRN Reason: Nausea/Vomiting Ranitidine HCl (Zantac) 150 mg PO DAILY [facility] Last Admin: 12/24/16 08:21 Dose: 150 mg Senna/Docusate Sodium (Senna Plus) 1 tab PO BID PRN PRN Reason: Constipation Tamsulosin HCl (Flomax) 0.4 mg PO DAILY [facility] Last Admin: 12/24/16 08:19 Dose: 0.4 mg Warfarin Sodium (Coumadin) 5 mg PO DAILY@1300 [facility] Last Admin: 12/24/16 14:34 Dose: 5 mg Discontinued Medications Amoxicillin/Clavulanate Potassium (Augmentin 875 Mg/125 Mg) 1 tab PO ONETIME ONE Stop: 12/23/16 05:55 Last Admin: 12/23/16 06:25 Dose: Not Given Hydrochlorothiazide (Hydrochlorothiazide) 12.5 mg PO DAILY [facility] Last Admin: 12/23/16 09:48 Dose: 12.5 mg Sodium Chloride (Normal Saline) 1,000 mls @ 125 mls/hr IV ASDIRECTED [facility] Last Admin: 12/23/16 01:08 Dose: 125 mls/hr Potassium Chloride/Sodium Chloride (Normal Saline With 20 Meq Kcl) 1,000 mls @ 300 mls/hr IV ASDIRECTED [facility] Last Admin: 12/23/16 02:58 Dose: 300 mls/hr Potassium Chloride/Sodium Chloride (1/2 Ns With 20 Meq Kcl) 1,000 mls @ 100 mls /hr IV ASDIRECTED [facility] Potassium Chloride/Sodium Chloride (Normal Saline With 20 Meq Kcl) 1,000 mls @ 75 mls/hr IV ASDIRECTED [facility] Last Admin: 12/23/16 06:25 Dose: 75 mls/hr Potassium Chloride/Dextrose/Sod Cl (D5 Ns With 20 Meq Kcl) 1,000 mls @ 125 mls/ hr IV ASDIRECTED [facility] Last Admin: 12/24/16 04:25 Dose: 125 mls/hr Labetalol HCl (Normodyne) 20 mg IVPUSH NOW ONE PRN Reason: Protocol Stop: 12/23/16 00:53 Last Admin: 12/23/16 01:11 Dose: 20 mg Losartan Potassium (Cozaar) 100 mg PO DAILY [facility] Last Admin: 12/23/16 09:48 Dose: 100 mg Methylprednisolone Sodium Succinate (Solu-Medrol) 62.5 mg IVPUSH ONETIME ONE Stop: 12/23/16 03:37 Last Admin: 12/23/16 03:49 Dose: 62.5 mg Methylprednisolone Sodium Succinate (Solu-Medrol) 62.5 mg IVPUSH Q8H [facility] Last Admin: 12/24/16 03:25 Dose: 62.5 mg Ondansetron HCl (Zofran) 4 mg IVPUSH ONETIME ONE Stop: 12/23/16 00:42 Last Admin: 12/23/16 00:47 Dose: 4 mg Ondansetron HCl (Zofran) 4 mg IVPUSH ONETIME ONE Stop: 12/23/16 01:50 Last Admin: 12/23/16 02:47 Dose: 4 mg Ondansetron HCl (Zofran) 4 mg IVPUSH ONETIME ONE Stop: 12/23/16 04:35 Last Admin: 12/23/16 04:48 Dose: 4 mg Ondansetron HCl (Zofran) 4 mg IVPUSH ONETIME ONE Stop: 12/23/16 06:38 Last Admin: 12/23/16 07:04 Dose: 4 mg Pantoprazole Sodium (Protonix Iv) 40 mg IV ONETIME ONE Stop: 12/23/16 10:01 Last Admin: 12/23/16 09:39 Dose: 40 mg Potassium Chloride (Klor-Con M20) 40 meq PO ONETIME ONE Stop: 12/24/16 10:01 Last Admin: 12/24/16 10:53 Dose: 40 meq Risperidone (Risperidal) 0.5 mg PO TID [facility] Last Admin: 12/23/16 15:48 Dose: Not Given - Exam Quality Assessment: No: supplemental oxygen General: alert, oriented, cooperative, no acute distress HEENT: Pupils equal, Mucous membr. moist/pink Neck: supple Lungs: Normal respiratory effort Abdomen: soft, no distension Skin: warm, dry Neurological: no new focal deficit, other (Very hard of hearing) Psy/Mental Status: alert, normal affect - Problem List & Annotations (1) Nausea and vomiting SNOMED Code(s): 93523237 Code(s): R11.2 - NAUSEA WITH VOMITING, UNSPECIFIED Status: Acute Current Visit: Yes Qualifiers: Vomiting type: unspecified Vomiting Intractability: unspecified Qualified Code(s): R11.2 - Nausea with vomiting, unspecified (2) Sudden idiopathic hearing loss of left ear SNOMED Code(s): 15849282 Code(s): H91.22 - SUDDEN IDIOPATHIC HEARING LOSS, LEFT EAR Status: Acute Current Visit: Yes Qualifiers: Contralateral hearing status: restricted hearing on contralateral side Qualified Code(s): H91.22 - Sudden idiopathic hearing loss, left ear (3) Inflammatory bowel disease (ulcerative colitis) SNOMED Code(s): 87635334 Code(s): K51.90 - ULCERATIVE COLITIS, UNSPECIFIED, WITHOUT COMPLICATIONS Status: Chronic Current Visit: Yes Qualifiers: Ulcerative colitis location: other ulcerative colitis Digestive disease complication type: without complication Qualified Code(s): K51.80 - Other ulcerative colitis without complications (4) Schizoaffective disorder SNOMED Code(s): 87522253 Code(s): F25.9 - SCHIZOAFFECTIVE DISORDER, UNSPECIFIED Status: Chronic Current Visit: Yes Qualifiers: Schizoaffective disorder type: unspecified Qualified Code(s): F25.9 - Schizoaffective disorder, unspecified - Problem List Review Problem List Initiated/Reviewed/Updated: Yes - My Orders Last 24 Hours: My Active Orders 12/24/16 09:00 Non-Formulary Medication [NF Drug] 1 each PO DAILY 12/24/16 10:25 PT Evaluation and Treatment [CONS] Routine Convert IV to Saline Lock [OM.PC] Routine 12/24/16 14:25 Meclizine [Antivert] 25 mg PO Q6H PRN 12/24/16 16:30 predniSONE 20 mg PO BIDAC 12/24/16 Lunch Regular Diet [DIET] 12/25/16 05:00 BASIC METABOLIC PANEL,BMP [CHEM] Timed CBC W/O DIFF,HEMOGRAM [HEME] Timed (1) - Plan Plan:: Assessment and plan - Sudden hearing loss left ear - persistent, no obvious additional neurologic deficits. Physical therapy does raise some concern for possible component of vertigo. The viral infection certainly could be considered. Unclear if vomiting is related to viral infection or a result of the inner ear dysfunction. Seems to be getting better with steroids. -Trial of meclizine -Steroids -Physical therapy for vestibular rehabilitation Nausea with vomiting - no pain and seems to have resolved. Unclear if this was a viral enteritis or possibly a symptom of the possible vertigo. -IV fluids -Antinausea medications as needed -pain control if indicated -Continue management for chronic ulcerative colitis Accelerated hypertension - blood pressure much better with hydration and usual medications. -Saline lock IV fluids -Continue home medication Schizoaffective disorder - no behavior issues at this time. -Continue home medications as tolerated History of DVT/PE - chronically anticoagulated with warfarin. -Continue warfarin Maintenance issues - - DVT prophylaxis - warfarin - GI prophylaxis - PPI - Nutrition - advance as tolerated Disposition - anticipate discharge back to the assisted living after the hospital stay, hopefully tomorrow. She would benefit from additional management for her dizziness/vertigo prior to transitioning to outpatient management. Jacques Avila M.D.
[2016-12-24] MEDS: predniSONE 20 MG Tab PO SCH (17:50)
[2016-12-25] MEDS: Tamsulosin 0.4 MG Cap.ER*POM PO SCH (08:41)
[2016-12-25] MEDS: Aspirin 81 MG Tab.EC PO SCH (08:41)
[2016-12-25] MEDS: Acetaminophen 500 MG Tab PO SCH ×3 (08:41→20:08)
[2016-12-25] MEDS: predniSONE 20 MG Tab PO SCH ×2 (08:41→16:58)
[2016-12-25] MEDS: HCTZ PO SCH (08:44)
[2016-12-25] MEDS: LOSARTAN PO SCH (08:44)
[2016-12-25] MEDS: RANITIDINE 150 MG PO SCH (08:45)
--- NOTE | 2016-12-25 11:00 | PCM.PN ---
- General Info Date of Service: 12/25/16 Functional Status: Reports: pain controlled, tolerating diet, ambulating - Review of Systems General: Reports: Weakness Neurological: Reports: Dizziness Systems Review Comment:: No acute events overnight. Blood pressures were well controlled yesterday but have risen this morning. Her dizziness has improved, especially while she sitting straight up but she does have dizziness when she leans to her left. She also feels nauseated when she leans to her left, for example when she is working with physical therapy doing her vestibular exercises. She has not had any fevers. She has not had any vomiting and has tolerated her diet. - Patient Data Vitals - most recent: Last Vital Signs Temp 36.7 C 12/25/16 10:54 Pulse 91 12/25/16 10:54 Resp 16 12/25/16 10:54 BP 178/107 H 12/25/16 10:54 Pulse Ox 98 12/25/16 10:54 Weight - most recent: 75.296 kg I&O - last 24 hours: Intake & Output 12/24/16 12/25/16 12/25/16 22:59 06:59 14:59 Intake Total 240 360 Output Total 600 Balance -600 240 360 Lab Results last 24 hrs: Laboratory Results - last 24 hr 12/25/16 12/25/16 Range/Units 05:00 05:00 WBC 20.4 H (4.5-11.0) K/uL RBC 4.33 (3.30-5.50) M/uL Hgb 12.8 (12.0-15.0) g/dL Hct 38.2 (36.0-48.0) % MCV 88 (80-98) fL MCH 30 (27-31) pg MCHC 34 (32-36) % Plt Count 248 (150-400) K/uL Sodium 137 L (140-148) mmol/L Potassium 4.1 (3.6-5.2) mmol/L Chloride 101 (100-108) mmol/L Carbon Dioxide 26 (21-32) mmol/L Anion Gap 14.1 H (5.0-14.0) mmol/L BUN 19 H (7-18) mg/dL Creatinine 0.7 (0.6-1.0) mg/dL Est Cr Clr Drug Dosing 46.81 mL/min Estimated GFR (MDRD) > 60 (>60) Glucose 117 H (74-106) mg/dL Calcium 8.5 (8.5-10.1) mg/dL Med Orders - Current: Current Medications Acetaminophen (Tylenol Extra Strength) 1,000 mg PO TID [facility] Last Admin: 12/25/16 08:41 Dose: 1,000 mg Aspirin (Halfprin) 81 mg PO DAILY [facility] Last Admin: 12/25/16 08:41 Dose: 81 mg Lorazepam (Ativan) 0.5 mg IVPUSH Q6H PRN PRN Reason: Nausea/Vomiting Last Admin: 12/23/16 09:15 Dose: 0.5 mg Meclizine HCl (Antivert) 25 mg PO Q6H PRN PRN Reason: Dizziness Morphine Sulfate (Morphine) 2 mg IVPUSH Q2H PRN PRN Reason: Pain (severe 7-10) (Mesalamine 400 Mg)* (Pom*) 400 mg PO TID [facility] Last Admin: 12/25/16 08:42 Dose: 400 mg Losartan/Hctz 100mg/ (12.5mg *Pom*) 1 each PO DAILY [facility] Last Admin: 12/25/16 08:44 Dose: 1 each Ondansetron HCl (Zofran Odt) 4 mg PO Q6H PRN PRN Reason: Nausea able to take PO Ondansetron HCl (Zofran) 4 mg IV Q6H PRN PRN Reason: Nausea/Vomiting Last Admin: 12/24/16 01:07 Dose: 4 mg Polyethylene Glycol (Miralax) 17 gm PO DAILY PRN PRN Reason: Constipation Potassium Chloride (Klor-Con M20) 20 meq PO BID [facility] Last Admin: 12/25/16 08:42 Dose: 20 meq Prednisone (Prednisone) 20 mg PO BIDMEALS [facility] Last Admin: 12/25/16 08:41 Dose: 20 mg Prochlorperazine Maleate (Compazine) 10 mg PO Q8H PRN PRN Reason: Nausea/Vomiting Ranitidine HCl (Zantac) 150 mg PO DAILY [facility] Last Admin: 12/25/16 08:45 Dose: 150 mg Senna/Docusate Sodium (Senna Plus) 1 tab PO BID PRN PRN Reason: Constipation Tamsulosin HCl (Flomax) 0.4 mg PO DAILY [facility] Last Admin: 12/25/16 08:41 Dose: 0.4 mg Warfarin Sodium (Coumadin) 5 mg PO DAILY@1300 [facility] Last Admin: 12/24/16 14:34 Dose: 5 mg Discontinued Medications Amoxicillin/Clavulanate Potassium (Augmentin 875 Mg/125 Mg) 1 tab PO ONETIME ONE Stop: 12/23/16 05:55 Last Admin: 12/23/16 06:25 Dose: Not Given Hydrochlorothiazide (Hydrochlorothiazide) 12.5 mg PO DAILY [facility] Last Admin: 12/23/16 09:48 Dose: 12.5 mg Sodium Chloride (Normal Saline) 1,000 mls @ 125 mls/hr IV ASDIRECTED [facility] Last Admin: 12/23/16 01:08 Dose: 125 mls/hr Potassium Chloride/Sodium Chloride (Normal Saline With 20 Meq Kcl) 1,000 mls @ 300 mls/hr IV ASDIRECTED [facility] Last Admin: 12/23/16 02:58 Dose: 300 mls/hr Potassium Chloride/Sodium Chloride (1/2 Ns With 20 Meq Kcl) 1,000 mls @ 100 mls /hr IV ASDIRECTED [facility] Potassium Chloride/Sodium Chloride (Normal Saline With 20 Meq Kcl) 1,000 mls @ 75 mls/hr IV ASDIRECTED [facility] Last Admin: 12/23/16 06:25 Dose: 75 mls/hr Potassium Chloride/Dextrose/Sod Cl (D5 Ns With 20 Meq Kcl) 1,000 mls @ 125 mls/ hr IV ASDIRECTED [facility] Last Admin: 12/24/16 04:25 Dose: 125 mls/hr Labetalol HCl (Normodyne) 20 mg IVPUSH NOW ONE PRN Reason: Protocol Stop: 12/23/16 00:53 Last Admin: 12/23/16 01:11 Dose: 20 mg Losartan Potassium (Cozaar) 100 mg PO DAILY [facility] Last Admin: 12/23/16 09:48 Dose: 100 mg Methylprednisolone Sodium Succinate (Solu-Medrol) 62.5 mg IVPUSH ONETIME ONE Stop: 12/23/16 03:37 Last Admin: 12/23/16 03:49 Dose: 62.5 mg Methylprednisolone Sodium Succinate (Solu-Medrol) 62.5 mg IVPUSH Q8H [facility] Last Admin: 12/24/16 03:25 Dose: 62.5 mg Ondansetron HCl (Zofran) 4 mg IVPUSH ONETIME ONE Stop: 12/23/16 00:42 Last Admin: 12/23/16 00:47 Dose: 4 mg Ondansetron HCl (Zofran) 4 mg IVPUSH ONETIME ONE Stop: 12/23/16 01:50 Last Admin: 12/23/16 02:47 Dose: 4 mg Ondansetron HCl (Zofran) 4 mg IVPUSH ONETIME ONE Stop: 12/23/16 04:35 Last Admin: 12/23/16 04:48 Dose: 4 mg Ondansetron HCl (Zofran) 4 mg IVPUSH ONETIME ONE Stop: 12/23/16 06:38 Last Admin: 12/23/16 07:04 Dose: 4 mg Pantoprazole Sodium (Protonix Iv) 40 mg IV ONETIME ONE Stop: 12/23/16 10:01 Last Admin: 12/23/16 09:39 Dose: 40 mg Potassium Chloride (Klor-Con M20) 40 meq PO ONETIME ONE Stop: 12/24/16 10:01 Last Admin: 12/24/16 10:53 Dose: 40 meq Risperidone (Risperidal) 0.5 mg PO TID [facility] Last Admin: 12/23/16 15:48 Dose: Not Given - Exam Quality Assessment: No: supplemental oxygen General: alert, oriented, cooperative, no acute distress HEENT: Other ([place]I) Neck: supple Lungs: Normal respiratory effort Cardiovascular: Regular Rate, Regular Rhythm Abdomen: soft, no distension Extremities: no edema Skin: warm, dry Neurological: no new focal deficit Psy/Mental Status: alert, normal affect - Problem List & Annotations (1) Nausea and vomiting SNOMED Code(s): 65485754 Code(s): R11.2 - NAUSEA WITH VOMITING, UNSPECIFIED Status: Acute Current Visit: Yes Qualifiers: Vomiting type: unspecified Vomiting Intractability: unspecified Qualified Code(s): R11.2 - Nausea with vomiting, unspecified (2) Sudden idiopathic hearing loss of left ear SNOMED Code(s): 67742626 Code(s): H91.22 - SUDDEN IDIOPATHIC HEARING LOSS, LEFT EAR Status: Acute Current Visit: Yes Qualifiers: Contralateral hearing status: restricted hearing on contralateral side Qualified Code(s): H91.22 - Sudden idiopathic hearing loss, left ear (3) Inflammatory bowel disease (ulcerative colitis) SNOMED Code(s): 80651707 Code(s): K51.90 - ULCERATIVE COLITIS, UNSPECIFIED, WITHOUT COMPLICATIONS Status: Chronic Current Visit: Yes Qualifiers: Ulcerative colitis location: other ulcerative colitis Digestive disease complication type: without complication Qualified Code(s): K51.80 - Other ulcerative colitis without complications (4) Schizoaffective disorder SNOMED Code(s): 80581749 Code(s): F25.9 - SCHIZOAFFECTIVE DISORDER, UNSPECIFIED Status: Chronic Current Visit: Yes Qualifiers: Schizoaffective disorder type: unspecified Qualified Code(s): F25.9 - Schizoaffective disorder, unspecified - Problem List Review Problem List Initiated/Reviewed/Updated: Yes - My Orders Last 24 Hours: My Active Orders 12/24/16 10:25 PT Evaluation and Treatment [CONS] Routine Convert IV to Saline Lock [OM.PC] Routine 12/24/16 14:25 Meclizine [Antivert] 25 mg PO Q6H PRN 12/24/16 17:00 predniSONE 20 mg PO BIDMEALS 12/24/16 Lunch Regular Diet [DIET] 12/26/16 05:00 BASIC METABOLIC PANEL,BMP [CHEM] Timed CBC W/O DIFF,HEMOGRAM [HEME] Timed (1) INR,PT,PROTHROMBIN TIME [COAG] Timed - Plan Plan:: Assessment and plan - Sudden hearing loss left ear - persistent, no obvious additional neurologic deficits. Physical therapy does raise some concern for possible component of vertigo. The viral infection certainly could be considered. Unclear if vomiting is related to viral infection or a result of the inner ear dysfunction. Seems to have a small amount of hearing today. Still some positional symptoms. -Trial of meclizine -Steroids -Physical therapy for vestibular rehabilitation Nausea with vomiting - no pain and seems to have resolved. Unclear if this was a viral gastritis or possibly a symptom of the possible vertigo. -Saline lock IV -Antinausea medications as needed -pain control if indicated -Continue management for chronic ulcerative colitis Accelerated hypertension - blood pressure slightly elevated today but was better throughout the day yesterday -Saline lock IV fluids -Continue home medication Schizoaffective disorder - no behavior issues at this time. -Continue home medications as tolerated History of DVT/PE - chronically anticoagulated with warfarin. -Continue warfarin -INR in the morning Maintenance issues - - DVT prophylaxis - warfarin - GI prophylaxis - PPI - Nutrition - advance as tolerated Disposition - anticipate discharge back to the assisted living after the hospital stay, hopefully tomorrow. Monitoring blood pressure and providing additional symptom management today. Jacques Avila M.D.
[2016-12-25] MEDS: Warfarin 5 MG Tab*POM PO SCH (14:21)
[2016-12-26] MEDS: Tamsulosin 0.4 MG Cap.ER*POM PO SCH (08:50)
[2016-12-26] MEDS: Acetaminophen 500 MG Tab PO SCH (08:50)
[2016-12-26] MEDS: Aspirin 81 MG Tab.EC PO SCH (08:50)
[2016-12-26] MEDS: predniSONE 20 MG Tab PO SCH (08:50)
[2016-12-26] MEDS: LOSARTAN PO SCH (08:52)
[2016-12-26] MEDS: HCTZ PO SCH (08:52)
[2016-12-26] MEDS: RANITIDINE 150 MG PO SCH (08:53)
[2016-12-26] MEDS ORDERED: Bisacodyl 10 MG Supp RECTAL ONE (09:15)
[2016-12-26 09:48] VITALS: BP 175/100
--- NOTE | 2016-12-26 10:17 | PCM.DCSUM1 ---
Discharge Summary - Hospital Course Brief History: 81-year-old female with history of essential hypertension, hearing loss in her right ear and schizoaffective disorder who presented with sudden hearing loss in her left ear as well as nausea with vomiting. She was admitted for management. - Discharge Data Discharge Date: 12/26/16 Discharge Disposition: Home, W [facility] 06 Condition: Fair - Discharge Diagnosis/Problem(s) (1) Sudden idiopathic hearing loss of left ear SNOMED Code(s): 17865589 ICD Code: H91.22 - SUDDEN IDIOPATHIC HEARING LOSS, LEFT EAR Status: Acute Current Visit: Yes Qualifiers: Contralateral hearing status: restricted hearing on contralateral side Qualified Code(s): H91.22 - Sudden idiopathic hearing loss, left ear (2) Vertiginous syndromes in diseases classified elsewhere, left ear SNOMED Code(s): 95084713 ICD Code: H82.2 - VERTIGINOUS SYNDROMES IN DISEASES CLASSD [id number], LEFT EAR Status: Acute Current Visit: Yes (3) Nausea and vomiting SNOMED Code(s): 35990365 ICD Code: R11.2 - NAUSEA WITH VOMITING, UNSPECIFIED Status: Acute Current Visit: Yes Qualifiers: Vomiting type: unspecified Vomiting Intractability: unspecified Qualified Code(s): R11.2 - Nausea with vomiting, unspecified (4) Inflammatory bowel disease (ulcerative colitis) SNOMED Code(s): 72278495 ICD Code: K51.90 - ULCERATIVE COLITIS, UNSPECIFIED, WITHOUT COMPLICATIONS Status: Chronic Current Visit: Yes Qualifiers: Ulcerative colitis location: other ulcerative colitis Digestive disease complication type: without complication Qualified Code(s): K51.80 - Other ulcerative colitis without complications (5) Schizoaffective disorder SNOMED Code(s): 40349714 ICD Code: F25.9 - SCHIZOAFFECTIVE DISORDER, UNSPECIFIED Status: Chronic Current Visit: Yes Qualifiers: Schizoaffective disorder type: unspecified Qualified Code(s): F25.9 - Schizoaffective disorder, unspecified - Patient Summary/Data Consults: Consultations 12/24/16 10:25 PT Evaluation and Treatment [CONS] Routine Please Evaluate and Treat. PT Reason for Consult: Ambulation Pending Discharge: Yes Special Instructions: pt reports dizziness This query below is only for informational purposes and is not editable. Admission Diagnosis/Problem: Vomiting Recommended Follow-up Testing/Procedures: Jodee will need a prednisone taper. The timing of this and duration of this will depend on how quickly her hearing improves. Hospital Course: Jodee presented to the emergency room with sudden onset of hearing loss in her left ear. She was also noted to have nausea and vomiting in the emergency room. Workup in the emergency room was relatively reassuring with a head CT that did not show acute changes. Laboratory workup was relatively unrevealing and her sedimentation rate was normal. With her nausea and vomiting as well as her loss of hearing elected to admit her to the hospital. We did start her on steroids to help with the suspected inflammation involving the eighth cranial nerve. She did have a CT of the abdomen to evaluate her vomiting and this was unremarkable other than a small area of inflammation in the tissue surrounding the small intestine in the left side of the abdomen. She did not have any abdominal pain. Her nausea and vomiting resolved throughout the first night with some IV fluids. Initially her blood pressure was elevated but this did improve with IV fluids as well. By the morning after admission things have stabilized. Her blood pressures have been acceptable. Nausea and vomiting have resolved. She continues to report that she has no hearing in her left ear. Physical therapy did see her and felt that she had vertigo with significant symptoms of nausea when she leans to her left side. I provided some exercises and she's been utilizing his during the course of the hospital stay. That for an additional day of monitoring at this point given some ups and downs with her blood pressures as well as persistent nausea. The day before discharge through the day of discharge revealed some minor fluctuations in her blood pressure but in general they have been fairly well- controlled. her dizziness continues to improve. She has not had recurrence of her nausea and vomiting. She has not had any diarrhea or fevers. She believes that she has regained at least a small quantity of her hearing but we still have to communicate using pen and paper. she has been on prednisone during hospital stay to help reduce any inflammation of the eighth cranial nerve. She will be on 20 mg twice a day at the time of discharge. I would recommend followup in one week to see if she is improving. If her hearing has improved dramatically her prednisone can be tapered fairly quickly. If it's improving slowly he may need a longer taper. I will leave this up to Dr. Sorto's discretion when he sees her in followup. She will be discharged back to her assisted-living facility today. She has meclizine for dizziness. She will be on a prednisone course as listed above. I have also placed a referral to home health care to provide physical therapy and vestibular rehabilitation. - Patient Instructions Diet: Usual Diet as Tolerated Activity: As Tolerated Driving: Do Not Drive Showering/Bathing: May Shower Notify Provider of: Fever, Increased Pain, Nausea and/or Vomiting Other/Special Instructions: 1. You Were in the hospital for management of sudden onset of hearing loss as well as nausea with vomiting and vertigo. I suspect that your symptoms of hearing loss and vertigo are the result of inflammation of the cranial nerve that supplies innervation to the ear. I believe this was caused by a viral infection that caused the nausea and vomiting. We have started you on steroids to help with the inflammation of the cranial nerve. Your hearing seems to be slowly returning. 2. I have placed a referral to home health care services. They will provide vestibular rehabilitation through the physical therapy department to help provide additional treatment for your vertigo symptoms. 3. I have provided a prescription for meclizine. You can use this medication every 6 hours as needed for dizziness related to vertigo. 4. Please continue your usual medications as previously prescribed. 5. Re-admit to [facility]. Please use the standing house orders. 6. Please seek medical attention if you have fever greater than 101, have severe dizziness that leaves you unable to sit or stand or you have persistent vomiting or diarrhea. - Discharge Plan Prescriptions/Med Rec: Meclizine HCl 25 mg PO Q6H PRN #30 tablet PRN Reason: Dizziness predniSONE [Prednisone] 20 mg PO BIDAC #28 tablet Home Medications: Home Meds Acetaminophen [Tylenol Extra Strength] 1,000 mg PO DAILY 12/23/16 [History] Aspirin [Adult Low Dose Aspirin EC] 81 mg PO DAILY 12/23/16 [History] Calcium Carbonate/Vitamin D3 [Calcium 600 + Vit D 400 Softgl] 1 tab PO BID 12/23 [History] Ceravite 1 tab PO DAILY 12/23/16 [History] Cyanocobalamin (Vitamin B-12) [Cyanocobalamin Injection] 1,000 mcg IM ASDIRECTED 12/23/16 [History] Lidocaine HCl [Aspercreme] 1 applic TOP BID 12/23/16 [History] Loratadine 10 mg PO DAILY 12/23/16 [History] Losartan/Hydrochlorothiazide [Losartan-HCTZ 100-12.5 MG] 1 tab PO DAILY [History] Mesalamine [Delzicol] 400 mg PO TID 12/23/16 [History] Potassium Chloride 20 meq PO BID 12/23/16 [History] Ranitidine [Zantac] 150 mg PO DAILY 12/23/16 [History] Tamsulosin HCl [Flomax] 0.4 mg PO DAILY 12/23/16 [History] Vit C/Cleopatra Ac/Lut/Copper/ZnOx [Preservision Lutein Softgel] 2 tab PO DAILY 12/23 [History] Warfarin [Coumadin] 5 mg PO ASDIRECTED 12/23/16 [History] Warfarin [Coumadin] 7.5 mg PO ASDIRECTED 12/23/16 [History] risperiDONE 0.5 mg PO TID 12/23/16 [History] Meclizine HCl 25 mg PO Q6H PRN #30 tablet 12/25/16 [Rx] predniSONE [Prednisone] 20 mg PO BIDAC #28 tablet 12/25/16 [Rx] Patient Handouts: Vertigo, [id number], Prednisone tablets Referrals: Carlos Sorto MD [Primary Care Provider] - (1 week - followup hospital stay for vertigo and hearing loss in the left ear) - Discharge Summary/Plan Comment DC Time >30 min.: Yes (40 - coordinating outpatient f/u, Home health ) - Patient Data Vitals - Most Recent: Last Vital Signs Temp 36.0 C 12/26/16 05:44 Pulse 76 12/26/16 05:44 Resp 16 12/26/16 05:44 BP 175/100 H 12/26/16 09:47 Pulse Ox 96 12/26/16 05:44 Weight - Most Recent: 75.296 kg I&O - Last 24 hours: Intake & Output 12/25/16 12/26/16 12/26/16 22:59 06:59 14:59 Intake Total 475 540 360 Output Total 300 Balance 175 540 360 Lab Results - Last 24 hrs: Laboratory Results - last 24 hr 12/26/16 12/26/16 12/26/16 Range/Units 05:12 05:12 05:12 WBC 13.0 H (4.5-11.0) K/uL RBC 4.25 (3.30-5.50) M/uL Hgb 12.4 (12.0-15.0) g/dL Hct 37.4 (36.0-48.0) % MCV 88 (80-98) fL MCH 29 (27-31) pg MCHC 33 (32-36) % Plt Count 222 (150-400) K/uL PT 43.2 H (9.5-12.0) sec INR 3.82 H (0.80-1.20) Sodium 137 L (140-148) mmol/L Potassium 3.7 (3.6-5.2) mmol/L Chloride 101 (100-108) mmol/L Carbon Dioxide 30 (21-32) mmol/L Anion Gap 9.7 (5.0-14.0) mmol/L BUN 19 H (7-18) mg/dL Creatinine 0.7 (0.6-1.0) mg/dL Est Cr Clr Drug Dosing 46.81 mL/min Estimated GFR (MDRD) > 60 (>60) Glucose 99 (74-106) mg/dL Calcium 8.2 L (8.5-10.1) mg/dL Med Orders - Current: Current Medications Acetaminophen (Tylenol Extra Strength) 1,000 mg PO TID [facility] Last Admin: 12/26/16 08:50 Dose: 1,000 mg Aspirin (Halfprin) 81 mg PO DAILY [facility] Last Admin: 12/26/16 08:50 Dose: 81 mg Lorazepam (Ativan) 0.5 mg IVPUSH Q6H PRN PRN Reason: Nausea/Vomiting Last Admin: 12/23/16 09:15 Dose: 0.5 mg Meclizine HCl (Antivert) 25 mg PO Q6H PRN PRN Reason: Dizziness Last Admin: 12/25/16 11:06 Dose: 25 mg Morphine Sulfate (Morphine) 2 mg IVPUSH Q2H PRN PRN Reason: Pain (severe 7-10) (Mesalamine 400 Mg)* (Pom*) 400 mg PO TID [facility] Last Admin: 12/26/16 08:53 Dose: 400 mg Losartan/Hctz 100mg/ (12.5mg *Pom*) 1 each PO DAILY [facility] Last Admin: 12/26/16 08:52 Dose: 1 each Ondansetron HCl (Zofran Odt) 4 mg PO Q6H PRN PRN Reason: Nausea able to take PO Ondansetron HCl (Zofran) 4 mg IV Q6H PRN PRN Reason: Nausea/Vomiting Last Admin: 12/24/16 01:07 Dose: 4 mg Polyethylene Glycol (Miralax) 17 gm PO DAILY PRN PRN Reason: Constipation Last Admin: 12/26/16 06:06 Dose: 17 gm Potassium Chloride (Klor-Con M20) 20 meq PO BID [facility] Last Admin: 12/26/16 08:52 Dose: 20 meq Prednisone (Prednisone) 20 mg PO BIDMEALS [facility] Last Admin: 12/26/16 08:50 Dose: 20 mg Prochlorperazine Maleate (Compazine) 10 mg PO Q8H PRN PRN Reason: Nausea/Vomiting Ranitidine HCl (Zantac) 150 mg PO DAILY [facility] Last Admin: 12/26/16 08:53 Dose: 150 mg Senna/Docusate Sodium (Senna Plus) 1 tab PO BID PRN PRN Reason: Constipation Last Admin: 12/26/16 06:06 Dose: 1 tab Tamsulosin HCl (Flomax) 0.4 mg PO DAILY [facility] Last Admin: 12/26/16 08:50 Dose: 0.4 mg Discontinued Medications Amoxicillin/Clavulanate Potassium (Augmentin 875 Mg/125 Mg) 1 tab PO ONETIME ONE Stop: 12/23/16 05:55 Last Admin: 12/23/16 06:25 Dose: Not Given Bisacodyl (Dulcolax) 10 mg RECTAL ONETIME ONE Stop: 12/26/16 09:16 Last Admin: 12/26/16 09:08 Dose: 10 mg Hydrochlorothiazide (Hydrochlorothiazide) 12.5 mg PO DAILY [facility] Last Admin: 12/23/16 09:48 Dose: 12.5 mg Sodium Chloride (Normal Saline) 1,000 mls @ 125 mls/hr IV ASDIRECTED [facility] Last Admin: 12/23/16 01:08 Dose: 125 mls/hr Potassium Chloride/Sodium Chloride (Normal Saline With 20 Meq Kcl) 1,000 mls @ 300 mls/hr IV ASDIRECTED [facility] Last Admin: 12/23/16 02:58 Dose: 300 mls/hr Potassium Chloride/Sodium Chloride (1/2 Ns With 20 Meq Kcl) 1,000 mls @ 100 mls /hr IV ASDIRECTED ATA Potassium Chloride/Sodium Chloride (Normal Saline With 20 Meq Kcl) 1,000 mls @ 75 mls/hr IV ASDIRECTED [facility] Last Admin: 12/23/16 06:25 Dose: 75 mls/hr Potassium Chloride/Dextrose/Sod Cl (D5 Ns With 20 Meq Kcl) 1,000 mls @ 125 mls/ hr IV ASDIRECTED [facility] Last Admin: 12/24/16 04:25 Dose: 125 mls/hr Labetalol HCl (Normodyne) 20 mg IVPUSH NOW ONE PRN Reason: Protocol Stop: 12/23/16 00:53 Last Admin: 12/23/16 01:11 Dose: 20 mg Losartan Potassium (Cozaar) 100 mg PO DAILY [facility] Last Admin: 12/23/16 09:48 Dose: 100 mg Methylprednisolone Sodium Succinate (Solu-Medrol) 62.5 mg IVPUSH ONETIME ONE Stop: 12/23/16 03:37 Last Admin: 12/23/16 03:49 Dose: 62.5 mg Methylprednisolone Sodium Succinate (Solu-Medrol) 62.5 mg IVPUSH Q8H [facility] Last Admin: 12/24/16 03:25 Dose: 62.5 mg Ondansetron HCl (Zofran) 4 mg IVPUSH ONETIME ONE Stop: 12/23/16 00:42 Last Admin: 12/23/16 00:47 Dose: 4 mg Ondansetron HCl (Zofran) 4 mg IVPUSH ONETIME ONE Stop: 12/23/16 01:50 Last Admin: 12/23/16 02:47 Dose: 4 mg Ondansetron HCl (Zofran) 4 mg IVPUSH ONETIME ONE Stop: 12/23/16 04:35 Last Admin: 12/23/16 04:48 Dose: 4 mg Ondansetron HCl (Zofran) 4 mg IVPUSH ONETIME ONE Stop: 12/23/16 06:38 Last Admin: 12/23/16 07:04 Dose: 4 mg Pantoprazole Sodium (Protonix Iv) 40 mg IV ONETIME ONE Stop: 12/23/16 10:01 Last Admin: 12/23/16 09:39 Dose: 40 mg Potassium Chloride (Klor-Con M20) 40 meq PO ONETIME ONE Stop: 12/24/16 10:01 Last Admin: 12/24/16 10:53 Dose: 40 meq Risperidone (Risperidal) 0.5 mg PO TID [facility] Last Admin: 12/23/16 15:48 Dose: Not Given Warfarin Sodium (Coumadin) 5 mg PO DAILY@1300 [facility] Last Admin: 12/25/16 14:21 Dose: 5 mg *Q Meaningful Use (DIS) - VTE *Q VTE Criteria *Q: - Stroke *Q Stroke Criteria *Q: - AMI *Q AMI Criteria *Q:
== END 2016-12-26 11:30 | disposition home health service (06) ==
LOC: JP.ED 00:22 → JP.MS 08:16
PROVIDERS: ADMIT Internal Medicine; ATTEND Internal Medicine
DX: H91.22 Sudden idiopathic hearing loss, left ear (principal); I48.91 Unspecified atrial fibrillation; Z79.01 Long term (current) use of anticoagulants; M19.90 Unspecified osteoarthritis, unspecified site; M16.0 Bilateral primary osteoarthritis of hip; F25.9 Schizoaffective disorder, unspecified; K51.80 Other ulcerative colitis without complications; R11.2 Nausea with vomiting, unspecified; R53.1 Weakness; R42 Dizziness and giddiness; Z86.718 Personal history of other venous thrombosis and embolism; H82.2 Vertiginous syndromes in diseases classified elsewhere, left ear; Z79.899 Other long term (current) drug therapy
CPT/HCPCS: 36415; 70450; 71010; 74176; 80048; 80053; 80305; 81001; 82150; 82533; 83605; 83690; 84132; 84439; 84443; 85025; 85027; 85379; 85610; 85651; 86140; 86618; 93005; 93010; 96361; 96365; 96366; 96375; 96376; 97112; 97162; 99285; A9270; C9113; G0378; G0480; J2060; J2405; J2930; J3480; J7040; 96374; 99217; 99219; 99225

== ENCOUNTER 2018-11-10 04:13 | Emergency (ER) | payer MEDICAID, MEDICARE ==
[2018-11-10 04:44] VITALS: BP 206/106
[2018-11-10] MEDS ORDERED: traMADol 50 MG Tab PO ONE (05:00)
--- NOTE | 2018-11-10 05:11 | EDM.PDOC ---
ED HPI GENERAL MEDICAL PROBLEM - General Chief Complaint: Lower Extremity Injury/Pain Stated Complaint: MEDICAL [facility]IA [facility] Time Seen by Provider: 11/10/18 04:45 Source of Information: Reports: Patient, EMS, RN History Limitations: Reports: Language Barrier (Patient is extremely hard of hearing) - History of Present Illness INITIAL COMMENTS - FREE TEXT/NARRATIVE: 83-year-old female was been having ongoing left hip pain for several months, she was evaluated by her primary provider 3 weeks ago and a left hip x-ray was done which was read as normal seated total hip without fracture or movement. An orthopedic consultation was made and it was felt that pain control would be appropriate, revision was not felt to be appropriate. No pain control is been given. Tonight she was walking around with her walker in the middle of the night complaining about how she should not be in so much pain so they called the ambulance and sent her in. Duration: Week(s): (Pain is been ongoing for weeks) Location: Reports: Lower Extremity, Left Quality: Reports: Sharp Worsens with: Reports: Other (Weightbearing), Movement left leg Pain Score (Numeric/FACES): 10 - Related Data Allergies Allergy/AdvReac Type Severity Reaction Status Date / Time amoxicillin Allergy Other Verified 12/23/16 00:39 Home Meds: Home Meds Acetaminophen [Tylenol Extra Strength] 1,000 mg PO DAILY 12/23/16 [History] Aspirin [Adult Low Dose Aspirin EC] 81 mg PO DAILY 12/23/16 [History] Calcium Carbonate/Vitamin D3 [Calcium 600 + Vit D 400 Softgl] 1 tab PO BID 12/23 [History] Ceravite 1 tab PO DAILY 12/23/16 [History] Cyanocobalamin (Vitamin B-12) [Cyanocobalamin Injection] 1,000 mcg IM ASDIRECTED 12/23/16 [History] Lidocaine HCl [Aspercreme] 1 applic TOP BID 12/23/16 [History] Loratadine 10 mg PO DAILY 12/23/16 [History] Losartan/Hydrochlorothiazide [Losartan-HCTZ 100-12.5 MG] 1 tab PO DAILY [History] Mesalamine [Delzicol] 400 mg PO TID 12/23/16 [History] Potassium Chloride 20 meq PO BID 12/23/16 [History] Ranitidine [Zantac] 150 mg PO DAILY 12/23/16 [History] Tamsulosin HCl [Flomax] 0.4 mg PO DAILY 12/23/16 [History] Vit C/Cleopatra Ac/Lut/Copper/ZnOx [Preservision Lutein Softgel] 2 tab PO DAILY 12/23 [History] Warfarin [Coumadin] 5 mg PO ASDIRECTED 12/23/16 [History] Warfarin [Coumadin] 7.5 mg PO ASDIRECTED 12/23/16 [History] risperiDONE 0.5 mg PO TID 12/23/16 [History] Meclizine HCl 25 mg PO Q6H PRN #30 tablet 12/25/16 [Rx] predniSONE [Prednisone] 20 mg PO BIDAC #28 tablet 12/25/16 [Rx] Past Medical History HEENT History: Reports: Hard of Hearing, Impaired Vision, Macular Degeneration, Other (See Below) 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 Cardiovascular History: Reports: Blood Clots/VTE/DVT, Hypertension Gastrointestinal History: Reports: Other (See Below) Other Gastrointestinal History: ulcerative colitis Genitourinary History: Reports: Urinary Incontinence [employer] History: Reports: Musculoskeletal History: Reports: Osteoarthritis, Other (See Below) Other Musculoskeletal History: 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 Psychiatric History: Reports: Other (See Below) Other Psychiatric History: schizo Affective disorder Hematologic History: Reports: B12 Deficiency - Past Surgical History HEENT Surgical History: Reports: Other (See Below) Other HEENT Surgeries/Procedures: right mastoidectomy Neurological Surgical History: Reports: Scoliosis Musculoskeletal Surgical History: Reports: Knee Replacement, Other (See Below) Other Musculoskeletal Surgeries/Procedures:: right knee replacement Social & Family History - Family History Family Medical History: Noncontributory - Tobacco Use Smoking Status *Q: Never Smoker - Caffeine Use Caffeine Use: Reports: Coffee - Recreational Drug Use Recreational Drug Use: No Review of Systems - Review of Systems Review Of Systems: See Below Constitutional: Denies: Fever Respiratory: Reports: No Symptoms Cardiovascular: Reports: No Symptoms Skin: Denies: Bruising, Rash Neurological: Denies: Headache ED EXAM, GENERAL - Physical Exam Exam: See Below Exam Limited By: No Limitations General Appearance: Alert, No Apparent Distress (Patient looks fairly comfortable while sitting still) Head: Atraumatic Respiratory/Chest: No Respiratory Distress GI/Abdominal: Non-Tender Extremities: Other (Exam is otherwise limited to the lower extremities. She has full passive range of motion of the right hip and right knee without tenderness. Palpation to the lateral left hip causes discomfort, as well as passive flexion and extension of the hip and knee causes discomfort) Course - Vital Signs Last Recorded V/S: Last Vital Signs Temp 98.0 F 11/10/18 04:32 Pulse 107 H 11/10/18 04:32 Resp 17 11/10/18 04:32 BP 206/106 H 11/10/18 04:32 Pulse Ox 95 11/10/18 04:32 - Orders/Labs/Meds Meds: Medications Discontinued Medications Generic Name Dose Route Start Last Admin Trade Name [place] PRN Reason Stop Dose Admin Tramadol HCl 50 mg 11/10/18 05:00 11/10/18 05:06 Ultram PO 11/10/18 05:01 50 mg ONETIME ONE Administration - Re-Assessments/Exams Free Text/Narrative Re-Assessment/Exam: 11/10/18 05:09 Clinic notes were reviewed including the orthopedic referral. The caretakers at her home were also called to ask what with their expectations were on this visit. I don't feel she would be a candidate for a local injection such as a greater trochanteric bursa injection as her pain seems to be to diffuse over the leg and knee. I wrote the patient a note that we were going to give her something stronger for pain and she was agreeable, a note was written as she is unable to hear. She was given 50 mg of oral tramadol on a prescription for 40 additional doses to take one every 4-6 hours. 11/10/18 06:50 Patient's daughter came in to give her a right back to her assisted living. She got up and ambulated with her walker without any complaints except she wanted some drops for her nose. Her hip apparently was feeling better. The tramadol may be significantly beneficial for her. Departure - Departure Time of Disposition: 06:25 Disposition: Home, Self-Care 01 Clinical Impression: Chronic left hip pain - Discharge Information Instructions: Hip Pain Referrals: PCP,None [Primary Care Provider] - Forms: ED Department Discharge Care Plan Goals: Continue all current medications, adding tramadol every 4-6 hours as prescribed for the next several days and inform her primary care provider if it is beneficial to the patient.
== END 2018-11-10 06:24 | disposition home or self-care (01) ==
LOC: JP.ED 04:13
DX: M25.552 Pain in left hip (principal); G89.29 Other chronic pain; I10 Essential (primary) hypertension; Z88.1 Allergy status to other antibiotic agents; Z79.82 Long term (current) use of aspirin; Z79.899 Other long term (current) drug therapy
CPT/HCPCS: 99283; A9270

== ENCOUNTER 2019-01-23 12:03 | Inpatient (IN) | payer MEDICARE, MEDICAID ==
--- NOTE | 2019-01-23 13:27 | EDM.PDOC ---
ED HPI GENERAL MEDICAL PROBLEM - General Chief Complaint: General Stated Complaint: FALLING, NOT FEELING WELL Time Seen by Provider: 01/23/19 13:20 Source of Information: Reports: Old Records, RN History Limitations: Reports: Other (hearing deficit) - History of Present Illness INITIAL COMMENTS - FREE TEXT/NARRATIVE: 83 yo female with a hx of prolapsed bladder and now who has urinary frequency and has been falling often at the [facility] was sent for eval. No reported injuries from these falls. No fever reported. Onset: Gradual Duration: Day(s):, Getting Worse Location: Reports: Pelvis Quality: Reports: Burning Severity: Moderate Improves with: Reports: None Worsens with: Reports: Other (time) Context: Reports: Other (see HPI) Associated Symptoms: Reports: Other (falling). Denies: Fever/Chills Treatments INSURANCE AGENCY MANAGER: Reports: Other (see below) (none) - Related Data Allergies Allergy/AdvReac Type Severity Reaction Status Date / Time amoxicillin Allergy Other Verified 12/23/16 00:39 Home Meds: Home Meds Acetaminophen [Tylenol Extra Strength] 1,000 mg PO DAILY 12/23/16 [History] Aspirin [Adult Low Dose Aspirin EC] 81 mg PO DAILY 12/23/16 [History] Calcium Carbonate/Vitamin D3 [Calcium 600 + Vit D 400 Softgl] 1 tab PO BID 12/23 [History] Ceravite 1 tab PO DAILY 12/23/16 [History] Cyanocobalamin (Vitamin B-12) [Cyanocobalamin Injection] 1,000 mcg IM ASDIRECTED 12/23/16 [History] Lidocaine HCl [Aspercreme] 1 applic TOP BID 12/23/16 [History] Loratadine 10 mg PO DAILY 12/23/16 [History] Losartan/Hydrochlorothiazide [Losartan-HCTZ 100-12.5 MG] 1 tab PO DAILY [History] Mesalamine [Delzicol] 400 mg PO TID 12/23/16 [History] Potassium Chloride 20 meq PO BID 12/23/16 [History] Ranitidine [Zantac] 150 mg PO DAILY 12/23/16 [History] Tamsulosin HCl [Flomax] 0.4 mg PO DAILY 12/23/16 [History] Vit C/[place] Ac/Lut/Copper/ZnOx [Preservision Lutein Softgel] 2 tab PO DAILY 12/23 [History] Warfarin [Coumadin] 5 mg PO ASDIRECTED 12/23/16 [History] Warfarin [Coumadin] 7.5 mg PO ASDIRECTED 12/23/16 [History] risperiDONE 0.5 mg PO TID 12/23/16 [History] Meclizine HCl 25 mg PO Q6H PRN #30 tablet 12/25/16 [Rx] predniSONE [Prednisone] 20 mg PO BIDAC #28 tablet 12/25/16 [Rx] Past Medical History HEENT History: Reports: Hard of Hearing, Impaired Vision, Macular Degeneration, Other (See Below) 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 Cardiovascular History: Reports: Blood Clots/VTE/DVT, Hypertension Gastrointestinal History: Reports: Other (See Below) Other Gastrointestinal History: ulcerative colitis Genitourinary History: Reports: Urinary Incontinence 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: Musculoskeletal History: Reports: Osteoarthritis, Other (See Below) Other Musculoskeletal History: 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 Psychiatric History: Reports: Other (See Below) Other Psychiatric History: schizo Affective disorder Hematologic History: Reports: B12 Deficiency - Past Surgical History HEENT Surgical History: Reports: Other (See Below) Other HEENT Surgeries/Procedures: right mastoidectomy Neurological Surgical History: Reports: Scoliosis Musculoskeletal Surgical History: Reports: Knee Replacement, Other (See Below) Other Musculoskeletal Surgeries/Procedures:: right knee replacement Social & Family History - Family History Family Medical History: Noncontributory - Tobacco Use Smoking Status *Q: Unknown Ever Smoked - Caffeine Use Caffeine Use: Reports: Coffee ED ROS GENERAL - Review of Systems Review Of Systems: Unable To Obtain (dementia, decreased hearing, mental illness ) Constitutional: Reports: No Symptoms ED EXAM, GENERAL - Physical Exam Exam: See Below Exam Limited By: No Limitations General Appearance: Alert, WD/WN, No Apparent Distress Eye Exam: Bilateral Eye: Normal Inspection Ears: Normal External Exam, Normal Canal, Hearing Loss Ear Exam: Bilateral Ear: Auricle Normal, Canal Normal Nose: Normal Inspection, No Blood Throat/Mouth: Normal Inspection, Normal Lips, Normal Voice, No Airway Compromise Head: Atraumatic, Normocephalic Neck: Normal Inspection Respiratory/Chest: No Respiratory Distress, Lungs Clear, Normal Breath Sounds, No Accessory Muscle Use Cardiovascular: Regular Rate, Rhythm, No Edema GI/Abdominal: Soft, Non-Tender, No Distention Back Exam: Normal Inspection. No: CVA Tenderness (R), CVA Tenderness (L) Extremities: Normal Inspection, Normal Range of Motion, Non-Tender, No Pedal Edema Neurological: Alert, CN II-XII Intact, No Motor/Sensory Deficits Psychiatric: Normal Affect, Normal Mood Skin Exam: Warm, Dry, Intact, Normal Color, No Rash Course - Vital Signs Text/Narrative:: Post void bladder scan-446 ml Last Recorded V/S: Last Vital Signs Temp 35.9 C 01/23/19 13:06 Pulse 85 01/23/19 13:06 Resp 16 01/23/19 13:06 BP 125/79 01/23/19 13:06 Pulse Ox 90 L 01/23/19 13:06 - Orders/Labs/Meds Orders: Active Orders 24 hr Category Date Time Status Bladder Scan [RC] ASDIRECTED Care 01/23/19 13:21 Active Packer Catheter Insertion [Insert Urinary Catheter] [OM. Care 01/23/19 13:45 Ordered PC] Q24H Urinary Catheter Assessment [RC] ASDIRECTED Care 01/23/19 13:37 Active CULTURE URINE [RM] Stat Lab 01/23/19 14:00 Received Labs: Laboratory Tests 01/23/19 Range/Units 13:36 Urine Color Yellow Urine Appearance Turbid Urine pH 8.0 (4.5-8.0) Ur Specific [place] 1.010 (1.008-1.030) Urine Protein 100 H (NEGATIVE) mg/dL Urine Glucose (UA) Normal (NEGATIVE) mg/dL Urine Ketones Negative (NEGATIVE) mg/dL Urine Occult Blood Moderate (NEGATIVE) Urine Nitrite Negative (NEGATIVE) Urine Bilirubin Negative (NEGATIVE) Urine Urobilinogen Normal (NORMAL) mg/dL Ur Leukocyte Esterase Large (NEGATIVE) Urine RBC 5-10 H (0-5) Urine WBC Packed H (0-5) Ur Epithelial Cells Few Amorphous Sediment Moderate Urine Bacteria Many Urine Mucus Not seen Meds: Medications Discontinued Medications Generic Name Dose Route Start Last Admin Trade Name Freq PRN Reason Stop Dose Admin Cephalexin 500 mg 01/23/19 13:57 Keflex PO 01/23/19 13:58 ONETIME ONE Departure - Departure Time of Disposition: 14:10 Disposition: Home, Self-Care 01 Condition: Fair Clinical Impression: Urinary retention, Bladder prolapse UTI (urinary tract infection) Qualifiers: Urinary tract infection type: acute cystitis Hematuria presence: without hematuria Qualified Code(s): N30.00 - Acute cystitis without hematuria Urinary incontinence Qualifiers: Urinary Incontinence type: unspecified incontinence Qualified Code(s): R32 - Unspecified urinary incontinence - Discharge Information *PRESCRIPTION DRUG MONITORING PROGRAM REVIEWED*: No *COPY OF PRESCRIPTION DRUG MONITORING REPORT IN PATIENT ARMANDO: No Instructions: Acute Urinary Retention, Female Referrals: Carlos Sorto MD [Primary Care Provider] - Forms: ED Department Discharge Additional Instructions: Give cephalexin every 8 hrs for a week. See Dr. Sorto in 3 days to review culture and discuss likely need for a pessary. Drain leg bag as needed. - My Orders Last 24 Hours: My Active Orders 01/23/19 13:21 Bladder Scan [RC] ASDIRECTED 01/23/19 13:37 Urinary Catheter Assessment [RC] ASDIRECTED 01/23/19 13:45 Packer Catheter Insertion [Insert Urinary Catheter] [OM.PC] Q24H 01/23/19 14:00 CULTURE URINE [RM] Stat - Assessment/Plan Last 24 Hours: My Active Orders 01/23/19 13:21 Bladder Scan [RC] ASDIRECTED 01/23/19 13:37 Urinary Catheter Assessment [RC] ASDIRECTED 01/23/19 13:45 Packer Catheter Insertion [Insert Urinary Catheter] [OM.PC] Q24H 01/23/19 14:00 CULTURE URINE [RM] Stat
[2019-01-23] MEDS ORDERED: Cephalexin 250 MG Cap PO ONE (13:57)
[2019-01-23] MEDS ORDERED: risperiDONE 0.5 MG Tab PO ONE (17:35)
[2019-01-23] MEDS ORDERED: cefTRIAXone 1 GM in Sodium Chloride 0.9% 50 ML IV ONE (17:38)
[2019-01-23] MEDS ORDERED: Sodium Chloride 0.9% 10 ML Syringe FLUSH PRN (17:40)
[2019-01-23] MEDS: Sodium Chloride 0.9% 1,000 ML IV SCH (18:30)
[2019-01-23] MEDS: risperiDONE 0.25 MG Tab ONE ×3 (18:32→18:36)
--- NOTE | 2019-01-23 19:40 | PCM.HP ---
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 No reported injuries from these falls. No fever reported. Onset: Gradual Onset of Symptoms: Reports: Gradual Location: Reports: Generalized (weakness, frequent falls at Assisted Living Facility) Severity: Moderate Improves with: Reports: None Worsens with: Reports: None Associated Symptoms: Reports: Confusion, Weakness - Related Data Allergies/Adverse Reactions: Allergies Allergy/AdvReac Type Severity Reaction Status Date / Time amoxicillin Allergy Other Verified 12/23/16 00:39 Home Medications: Home Meds Acetaminophen [Tylenol Extra Strength] 500 mg PO DAILY 12/23/16 [History] Aspirin [Adult Low Dose Aspirin EC] 81 mg PO DAILY 12/23/16 [History] Calcium Carbonate/Vitamin D3 [Calcium 600 + Vit D 400 Softgl] 1 tab PO BID 12/23 [History] Ceravite 1 tab PO DAILY 12/23/16 [History] Cyanocobalamin (Vitamin B-12) [Cyanocobalamin Injection] 1,000 mcg IM ASDIRECTED 12/23/16 [History] Loratadine 10 mg PO DAILY 12/23/16 [History] Losartan/Hydrochlorothiazide [Losartan-HCTZ 100-12.5 MG] 1 tab PO DAILY [History] Potassium Chloride 20 meq PO BID 12/23/16 [History] Ranitidine [Zantac] 150 mg PO DAILY 12/23/16 [History] Tamsulosin HCl [Flomax] 0.4 mg PO DAILY 12/23/16 [History] Meclizine HCl 25 mg PO Q6H PRN #30 tablet 12/25/16 [Rx] Lactose-Reduced Food [Ensure] 237 ml PO BID 01/23/19 [History] Mesalamine [Delzicol] 400 mg PO TID 01/23/19 [History] Oxybutynin 2.5 mg PO BID 01/23/19 [History] Past Medical History HEENT History: Reports: Hard of Hearing, Impaired Vision, Macular Degeneration, Other (See Below) 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 Cardiovascular History: Reports: Blood Clots/VTE/DVT, Hypertension Gastrointestinal History: Reports: Other (See Below) Other Gastrointestinal History: ulcerative colitis Genitourinary History: Reports: Urinary Incontinence 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: Musculoskeletal History: Reports: Osteoarthritis, Other (See Below) Other Musculoskeletal History: 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 Psychiatric History: Reports: Other (See Below) Other Psychiatric History: schizo Affective disorder Hematologic History: Reports: B12 Deficiency - Past Surgical History HEENT Surgical History: Reports: Other (See Below) Other HEENT Surgeries/Procedures: right mastoidectomy Neurological Surgical History: Reports: Scoliosis Musculoskeletal Surgical History: Reports: Knee Replacement, Other (See Below) Other Musculoskeletal Surgeries/Procedures:: right knee replacement Social & Family History - Family History Family Medical History: Noncontributory - Tobacco Use Smoking Status *Q: Unknown Ever Smoked - Caffeine Use Caffeine Use: Reports: Coffee H&P Review of Systems - Review of Systems: Review Of Systems: Unable To Obtain Exam - Exam Exam: See Below - Vital Signs Vital Signs: Last Vital Signs Temp 35.9 C 01/23/19 13:06 Pulse 85 01/23/19 13:06 Resp 16 01/23/19 13:06 BP 125/79 01/23/19 13:06 Pulse Ox 90 L 01/23/19 13:06 Weight: 67.1 kg - Exam Quality Assessment: Urinary Catheter, DVT Prophylaxis General: Alert, Moderate Distress, Other (rambling speech pattern. moderate agitation. ) HEENT: Conjunctiva Clear, EOMI, Glasses, Other (very hard of hearing) Neck: Supple, Trachea Midline Lungs: Clear to Auscultation, Normal Respiratory Effort Cardiovascular: Regular Rate, Regular Rhythm GI/Abdominal Exam: Normal Bowel Sounds, Soft, Non-Tender (Female) Exam: Other (varela cath in place) Rectal (Female) Exam: Deferred Back Exam: Normal Inspection Extremities: No Pedal Edema, Normal Capillary Refill, Other (right leg is shortner than the left leg. hx of left avascular necrosis of hip, left hip replacement.) Skin: Warm, Dry, Intact Neuro Extensive - Mental Status: Alert, Disorientation to Person, Disorientation to Place, Inattentive Neuro Extensive - Motor, Sensory, Reflexes: Motor/Sensory Deficits Psychiatric: Agitated - Patient Data Lab Results Last 24 hrs: Laboratory Results - last 24 hr 01/23/19 01/23/19 01/23/19 Range/Units 13:36 17:13 17:13 WBC 7.7 (4.5-11.0) K/uL RBC 4.12 (3.30-5.50) M/uL Hgb 12.3 (12.0-15.0) g/dL Hct 36.6 (36.0-48.0) % MCV 89 (80-98) fL MCH 30 (27-31) pg MCHC 34 (32-36) % Plt Count 254 (150-400) K/uL PT (9.5-12.0) sec INR (0.80-1.20) Sodium 123 L (140-148) mmol/L Potassium 3.9 (3.6-5.2) mmol/L Chloride 88 L (100-108) mmol/L Carbon Dioxide 26 (21-32) mmol/L Anion Gap 12.9 (5.0-14.0) mmol/L BUN 17 (7-18) mg/dL Creatinine 0.8 (0.6-1.0) mg/dL Est Cr Clr Drug Dosing 37.60 mL/min Estimated GFR (MDRD) > 60 (>60) Glucose 114 H (74-106) mg/dL Calcium 9.2 (8.5-10.1) mg/dL Troponin I < 0.017 (0.000-0.056) ng/mL Urine Color Yellow Urine Appearance Turbid Urine pH 8.0 (4.5-8.0) Ur Specific [place] 1.010 (1.008-1.030) Urine Protein 100 H (NEGATIVE) mg/dL Urine Glucose (UA) Normal (NEGATIVE) mg/dL Urine Ketones Negative (NEGATIVE) mg/dL Urine Occult Blood Moderate (NEGATIVE) Urine Nitrite Negative (NEGATIVE) Urine Bilirubin Negative (NEGATIVE) Urine Urobilinogen Normal (NORMAL) mg/dL Ur Leukocyte Esterase Large (NEGATIVE) Urine RBC 5-10 H (0-5) Urine WBC Packed H (0-5) Ur Epithelial Cells Few Amorphous Sediment Moderate Urine Bacteria Many Urine Mucus Not seen 01/23/19 Range/Units 17:13 WBC (4.5-11.0) K/uL RBC (3.30-5.50) M/uL Hgb (12.0-15.0) g/dL Hct (36.0-48.0) % MCV (80-98) fL MCH (27-31) pg MCHC (32-36) % Plt Count (150-400) K/uL PT 10.2 (9.5-12.0) sec INR 0.94 D (0.80-1.20) Sodium (140-148) mmol/L Potassium (3.6-5.2) mmol/L Chloride (100-108) mmol/L Carbon Dioxide (21-32) mmol/L Anion Gap (5.0-14.0) mmol/L BUN (7-18) mg/dL Creatinine (0.6-1.0) mg/dL Est Cr Clr Drug Dosing mL/min Estimated GFR (MDRD) (>60) Glucose (74-106) mg/dL Calcium (8.5-10.1) mg/dL Troponin I (0.000-0.056) ng/mL Urine Color Urine Appearance Urine pH (4.5-8.0) Ur Specific [place] (1.008-1.030) Urine Protein (NEGATIVE) mg/dL Urine Glucose (UA) (NEGATIVE) mg/dL Urine Ketones (NEGATIVE) mg/dL Urine Occult Blood (NEGATIVE) Urine Nitrite (NEGATIVE) Urine Bilirubin (NEGATIVE) Urine Urobilinogen (NORMAL) mg/dL Ur Leukocyte Esterase (NEGATIVE) Urine RBC (0-5) Urine WBC (0-5) Ur Epithelial Cells Amorphous Sediment Urine Bacteria Urine Mucus Result Diagrams: 01/23/19 17:13 01/23/19 17:13 - Problem List (1) UTI (urinary tract infection) SNOMED Code(s): 93463434 ICD Code: N39.0 - URINARY TRACT INFECTION, SITE NOT SPECIFIED Status: Acute Priority: High Current Visit: Yes Qualifiers: Urinary tract infection type: acute cystitis Hematuria presence: with hematuria Qualified Code(s): N30.01 - Acute cystitis with hematuria (2) Altered mental status, unspecified SNOMED Code(s): 587959839 ICD Code: R41.82 - ALTERED MENTAL STATUS, UNSPECIFIED Status: Acute Priority: High Current Visit: Yes Qualifiers: Altered mental status type: disorientation Qualified Code(s): R41.0 - Disorientation, unspecified (3) [place] (hard of hearing) SNOMED Code(s): 88907516 ICD Code: H91.90 - UNSPECIFIED HEARING LOSS, UNSPECIFIED EAR Status: Acute Priority: High Current Visit: Yes Qualifiers: Hearing loss type: unspecified Laterality: bilateral Qualified Code(s): H91.93 - Unspecified hearing loss, bilateral (4) Schizo-affective schizophrenia, chronic condition SNOMED Code(s): 134117536 ICD Code: F25.8 - OTHER SCHIZOAFFECTIVE DISORDERS Status: Acute Priority : High Current Visit: Yes Problem List Initiated/Reviewed/Updated: Yes Orders Last 24hrs: Active Orders 24 hr Category Date Time Status Patient Status Manage Transfer [TRANSFER] Routine ADT 01/23/19 19:06 Active Bladder Scan [RC] ASDIRECTED Care 01/23/19 13:21 Active Varela Catheter Insertion [Insert Urinary Catheter] [OM. Care 01/23/19 13:45 Ordered PC] Q24H Urinary Catheter Assessment [RC] ASDIRECTED Care 01/23/19 13:37 Active CULTURE URINE [RM] Stat Lab 01/23/19 14:00 Received Sodium Chloride 0.9% [Normal Saline] 1,000 ml Med 01/23/19 17:45 Active IV ASDIRECTED Sodium Chloride 0.9% [Saline Flush] Med 01/23/19 17:40 Active 10 ml FLUSH ASDIRECTED PRN Saline Lock Insert [OM.PC] Routine Oth 01/23/19 17:40 Ordered Resuscitation Status Routine Resus Stat 01/23/19 19:08 Ordered Medication Orders Sodium Chloride (Normal Saline) 1,000 mls @ 125 mls/hr IV ASDIRECTED ATA Last Admin: 01/23/19 18:30 Dose: 125 mls/hr Sodium Chloride (Saline Flush) 10 ml FLUSH ASDIRECTED PRN PRN Reason: Keep Vein Open Assessment/Plan Comment:: ASSESSMENT / PLAN This is a 83 year old female arrived by EMS from [facility]. The staff reports Mrs. Zapata has had weakness, increase in falls and more confused. She was evaluated in ER, Lab noted acute urinary tract infection. She had urinary retention and a varela cath was placed. Due to her increased confusion, weakness and varela cath, she will be admitted to hospital for further care and treatment Urinary Tract Infection: with history of urinary retention and bladder prolapse -Admit to [address] [place] [address] for further monitoring -IV Fluids for rehydration NS 125 mL per hour. -IV Antibiotic; Rocephin 1 gram IV every 24 hours -varela cath placed in ER -Tylenol -Advise to notify nurses of any fever or worsen pain -blood cultures x2 pending -urine culture pending -And a.m. labs: CBC, BMP Hypertension -Hyzaar 100-12.5 mg po daily -vital signs every 4 hours Schizo affective disorder- in remission, increased confusion -monitor closely -IV Ativan 1 mg every 4 hours prn agitation -Melatonin 6 mg po at hs Hard of Hearing -Nursing staff has been using [place] with limited success Maintenance issues -Orders home meds: chronic medication -Nutrition: regular soft diet -Varela catheter, indwelling cath -DVT: Levonox 30 units subcut -PPI; IV Protonix 40mg daily CODE STATUS: DNR/DNI Admission status: Admit to [address] [place] [address] Admission justification. This patient will be admitted for inpatient services and is medically appropriate meeting medical necessity for inpatient admission as outlined in my documentation. I reasonably expect the patient will require inpatient services that span. Time over 2 midnights. I reasonably expect this patient to be discharged or transferred within 96 hours after admission to the critical access hospital. Disposition:Carriage Assisted Living or Correction Placement Primary care provider: Dr. Sorto Hospitalist: Dr. Maurice
[2019-01-23] MEDS ORDERED: LACTOSE REDUCED FOOD PO SCH (21:10)
[2019-01-23] MEDS ORDERED: Meclizine 25 MG Tab PO PRN (21:10)
[2019-01-23] MEDS ORDERED: Melatonin 3 MG Tab PO SCH (21:10)
[2019-01-23] MEDS ORDERED: LORazepam 2 MG/ML SDV IVPUSH PRN (21:10)
[2019-01-23] MEDS ORDERED: Phenazopyridine 95 MG Tab PO PRN (21:18)
[2019-01-23] MEDS ORDERED: Belladonna Alkaloids/Opium 16.2-30 MG Supp RECTAL PRN (21:22)
[2019-01-23] MEDS: Potassium Chloride 20 MEQ Tab.ER PO SCH (21:26)
[2019-01-23] MEDS: Enoxaparin 30 MG/0.3 ML Syringe SUBCUT SCH (21:26)
[2019-01-23] MEDS ORDERED: Haloperidol Lactate 5 MG/ML SDV IVPUSH PRN (22:49)
--- NOTE | 2019-01-23 22:52 | PCM.SN ---
- Free Text/Narrative Note: call from [address] [place] [address] at [phone] Mrs. Zapata continues to be agitated despite Pyridium and Ativan. Nursing Staff requesting change of medication A: agitation P: order Haldol 0.5mg IV continue with close monitoring.
[2019-01-24] MEDS ORDERED: Morphine 2 MG/ML Syringe IVPUSH SCH (00:30)
[2019-01-24] MEDS: LORazepam 2 MG/ML SDV IVPUSH PRN ×3 (00:39→05:05)
[2019-01-24] MEDS: Morphine 2 MG/ML Syringe IVPUSH PRN ×4 (00:47→07:43)
[2019-01-24] MEDS: Sodium Chloride 0.9% 1,000 ML IV SCH ×2 (03:28→12:40)
[2019-01-24] MEDS ORDERED: Hydrochlorothiazide 12.5 MG Cap PO SCH (09:00)
[2019-01-24] MEDS ORDERED: Pantoprazole 40 MG Vial IVPUSH SCH (09:00)
--- NOTE | 2019-01-24 10:02 | PCM.PN ---
- General Info Date of Service: 01/24/19 Subjective Update: Ms. Zapata is an 83-year-old woman who was admitted through the emergency department last night with weakness and agitation secondary to underlying urinary tract infection. She resides at a local assisted living facility and does have underlying dementia, she is unable to provide a meaningful history concerning recent symptoms systems. Because of agitation she did receive sedating medication during the night and is lethargic this morning. - Patient Data Vitals - Most Recent: Last Vital Signs Temp 96.3 F 01/24/19 07:35 Pulse 115 H 01/24/19 07:35 Resp 16 01/24/19 07:35 BP 152/94 H 01/24/19 07:35 Pulse Ox 98 01/24/19 07:35 Weight - Most Recent: 152 lb 12.485 oz I&O - Last 24 Hours: Intake & Output 01/23/19 01/24/19 01/24/19 22:59 06:59 14:59 Intake Total 1000 Output Total 400 1550 Balance -400 -550 Lab Results Last 24 Hours: Laboratory Results - last 24 hr 01/23/19 01/23/19 01/23/19 Range/Units 13:36 17:13 17:13 WBC 7.7 (4.5-11.0) K/uL RBC 4.12 (3.30-5.50) M/uL Hgb 12.3 (12.0-15.0) g/dL Hct 36.6 (36.0-48.0) % MCV 89 (80-98) fL MCH 30 (27-31) pg MCHC 34 (32-36) % Plt Count 254 (150-400) K/uL Neut % (Auto) (36-66) % Lymph % (Auto) (24-44) % [place] % (Auto) (2-6) % Eos % (Auto) (2-4) % Baso % (Auto) (0-1) % PT (9.5-12.0) sec INR (0.80-1.20) Sodium 123 L (140-148) mmol/L Potassium 3.9 (3.6-5.2) mmol/L Chloride 88 L (100-108) mmol/L Carbon Dioxide 26 (21-32) mmol/L Anion Gap 12.9 (5.0-14.0) mmol/L BUN 17 (7-18) mg/dL Creatinine 0.8 (0.6-1.0) mg/dL Est Cr Clr Drug Dosing 37.60 mL/min Estimated GFR (MDRD) > 60 (>60) Glucose 114 H (74-106) mg/dL Calcium 9.2 (8.5-10.1) mg/dL Troponin I < 0.017 (0.000-0.056) ng/mL Urine Color Yellow Urine Appearance Turbid Urine pH 8.0 (4.5-8.0) Ur Specific Marks 1.010 (1.008-1.030) Urine Protein 100 H (NEGATIVE) mg/dL Urine Glucose (UA) Normal (NEGATIVE) mg/dL Urine Ketones Negative (NEGATIVE) mg/dL Urine Occult Blood Moderate (NEGATIVE) Urine Nitrite Negative (NEGATIVE) Urine Bilirubin Negative (NEGATIVE) Urine Urobilinogen Normal (NORMAL) mg/dL Ur Leukocyte Esterase Large (NEGATIVE) Urine RBC 5-10 H (0-5) Urine WBC Packed H (0-5) Ur Epithelial Cells Few Amorphous Sediment Moderate Urine Bacteria Many Urine Mucus Not seen 01/23/19 01/24/19 01/24/19 Range/Units 17:13 05:11 05:11 WBC 8.6 (4.5-11.0) K/uL RBC 4.08 (3.30-5.50) M/uL Hgb 12.4 (12.0-15.0) g/dL Hct 36.1 (36.0-48.0) % MCV 89 (80-98) fL MCH 30 (27-31) pg MCHC 34 (32-36) % Plt Count 257 (150-400) K/uL Neut % (Auto) 64 (36-66) % Lymph % (Auto) 16 L (24-44) % [place] % (Auto) 19 H (2-6) % Eos % (Auto) 1 L (2-4) % Baso % (Auto) 0 (0-1) % PT 10.2 (9.5-12.0) sec INR 0.94 D (0.80-1.20) Sodium 128 L (140-148) mmol/L Potassium 3.6 (3.6-5.2) mmol/L Chloride 93 L (100-108) mmol/L Carbon Dioxide 26 (21-32) mmol/L Anion Gap 12.6 (5.0-14.0) mmol/L BUN 10 (7-18) mg/dL Creatinine 0.7 (0.6-1.0) mg/dL Est Cr Clr Drug Dosing 45.14 mL/min Estimated GFR (MDRD) > 60 (>60) Glucose 115 H (74-106) mg/dL Calcium 8.5 (8.5-10.1) mg/dL Troponin I (0.000-0.056) ng/mL Urine Color Urine Appearance Urine pH (4.5-8.0) Ur Specific Marks (1.008-1.030) Urine Protein (NEGATIVE) mg/dL Urine Glucose (UA) (NEGATIVE) mg/dL Urine Ketones (NEGATIVE) mg/dL Urine Occult Blood (NEGATIVE) Urine Nitrite (NEGATIVE) Urine Bilirubin (NEGATIVE) Urine Urobilinogen (NORMAL) mg/dL Ur Leukocyte Esterase (NEGATIVE) Urine RBC (0-5) Urine WBC (0-5) Ur Epithelial Cells Amorphous Sediment Urine Bacteria Urine Mucus Med Orders - Current: Current Medications Acetaminophen (Tylenol Extra Strength) 500 mg PO DAILY [facility] Aspirin (Halfprin) 81 mg PO DAILY [facility] Belladonna Alkaloids/Opium (B & O Supprettes No. 15a) 1 supp RECTAL Q6H PRN PRN Reason: Spasms Last Admin: 01/23/19 22:33 Dose: 1 supp Enoxaparin Sodium (Lovenox) 30 mg SUBCUT Q24H [facility] Last Admin: 01/23/19 21:26 Dose: 30 mg Haloperidol Lactate (Haldol) 1 mg IVPUSH Q2H PRN PRN Reason: Agitation Ceftriaxone Sodium 1 gm/ (Sodium Chloride) 50 mls @ 100 mls/hr IV Q24H [facility] Sodium Chloride (Normal Saline) 1,000 mls @ 50 mls/hr IV ASDIRECTED [facility] Losartan Potassium (Cozaar) 100 mg PO DAILY [facility] Meclizine HCl (Antivert) 25 mg PO Q6H PRN PRN Reason: Dizziness Melatonin (Melatonin) 9 mg PO BEDTIME [facility] Mesalamine (Delzicol) 400 mg PO TID [facility] Last Admin: 01/23/19 21:26 Dose: Not Given Pantoprazole Sodium (Protonix) 40 mg PO DAILY@0730 [facility] Potassium Chloride (Klor-Con M20) 20 meq PO BID [facility] Last Admin: 01/23/19 21:26 Dose: 20 meq Ranitidine HCl (Zantac) 150 mg PO DAILY [facility] Sodium Chloride (Saline Flush) 10 ml FLUSH ASDIRECTED PRN PRN Reason: Keep Vein Open Tamsulosin HCl (Flomax) 0.4 mg PO DAILY [facility] Discontinued Medications Cephalexin (Keflex) 500 mg PO ONETIME ONE Stop: 01/23/19 13:58 Last Admin: 01/23/19 14:18 Dose: 500 mg Haloperidol Lactate (Haldol) 0.5 mg IVPUSH Q4H PRN PRN Reason: Agitation Last Admin: 01/23/19 23:36 Dose: 0.5 mg Hydrochlorothiazide (Hydrochlorothiazide) 12.5 mg PO DAILY [facility] Ceftriaxone Sodium 1 gm/ (Sodium Chloride) 50 mls @ 100 mls/hr IV ONETIME ONE Stop: 01/23/19 18:07 Last Admin: 01/23/19 18:32 Dose: 100 mls/hr Sodium Chloride (Normal Saline) 1,000 mls @ 125 mls/hr IV ASDIRECTED [facility] Last Admin: 01/24/19 03:28 Dose: 125 mls/hr Lorazepam (Ativan) 1 mg IVPUSH Q4H PRN PRN Reason: Agitation Last Admin: 01/23/19 22:29 Dose: 1 mg Lorazepam (Ativan) 1 mg IVPUSH Q2H PRN PRN Reason: Agitation Last Admin: 01/24/19 05:05 Dose: 1 mg Melatonin (Melatonin) 6 mg PO BEDTIME [facility] Last Admin: 01/23/19 21:26 Dose: 6 mg Morphine Sulfate (Morphine) 1 mg IVPUSH Q2H [facility] Last Admin: 01/24/19 01:46 Dose: Not Given Morphine Sulfate (Morphine) 1 mg IVPUSH Q2H PRN PRN Reason: Pain Last Admin: 01/24/19 07:43 Dose: 1 mg Pantoprazole Sodium (Protonix Iv) 40 mg IVPUSH DAILY [facility] Last Admin: 01/24/19 08:42 Dose: 40 mg Phenazopyridine HCl (Urinary Pain Relief) 190 mg PO TIDPC PRN PRN Reason: Spasms Risperidone (Risperidal) 0.5 mg PO ONETIME ONE Stop: 01/23/19 17:36 Last Admin: 01/23/19 18:35 Dose: 0.5 mg Risperidone (Risperidal) Confirm Administered Dose 0.5 mg .ROUTE .STK-MED ONE Stop: 01/23/19 18:21 Last Admin: 01/23/19 18:36 Dose: Not Given - Exam Quality Assessment: DVT Prophylaxis General: Sedated, Lethargic Lungs: Clear to Auscultation, Normal Respiratory Effort Cardiovascular: Regular Rate, Regular Rhythm, No Murmurs GI/Abdominal Exam: Soft, Non-Tender, No Organomegaly, No Distention Extremities: Non-Tender, No Pedal Edema - Problem List Review Problem List Initiated/Reviewed/Updated: Yes - My Orders Last 24 Hours: My Active Orders 01/24/19 09:50 PT Evaluation and Treatment [CONS] Routine 01/24/19 09:55 Haloperidol Lactate [Haldol] 1 mg IVPUSH Q2H PRN 01/24/19 10:00 Sodium Chloride 0.9% [Normal Saline] 1,000 ml IV ASDIRECTED 01/24/19 21:00 Melatonin 9 mg PO BEDTIME 01/25/19 05:00 BASIC METABOLIC PANEL,BMP [CHEM] Timed 01/25/19 07:30 Pantoprazole [ProTONIX] 40 mg PO DAILY@0730 - Plan Plan:: ASSESSMENT / PLAN Urinary Tract Infection: with history of urinary retention and bladder prolapse -Decrease IV fluids to 50 mL per hour -IV Antibiotic; Rocephin 1 gram IV every 24 hours -varela cath placed because of urinary retention -blood cultures x2 pending -urine culture pending Hyponatremia-likely secondary to hydrochlorothiazide. Improved following hydration -Hold hydrochlorothiazide -Reassess sodium level in a.m. Hypertension -Cozaar 100 mg by mouth daily -vital signs every 4 hours Schizo affective disorder- in remission, increased confusion -monitor closely -Haldol 1 mg IV every 2 hours as needed for agitation -Melatonin 9 mg po at hs Hard of Hearing -Nursing staff has been using [place] [employer] with limited success Maintenance issues -Orders home meds: chronic medication -Nutrition: regular soft diet -Varela catheter, indwelling cath because of urinary retention -DVT: Levonox 30 units subcut -PPI; IV Protonix 40mg daily CODE STATUS: DNR/DNI Admission status: Admit to [address] [place] [address] Admission justification. This patient will be admitted for inpatient services and is medically appropriate meeting medical necessity for inpatient admission as outlined in my documentation. I reasonably expect the patient will require inpatient services that span. Time over 2 midnights. I reasonably expect this patient to be discharged or transferred within 96 hours after admission to the [facility]. Disposition:Carriage Assisted Living or Prison Placement Primary care provider: Dr. Sorto Hospitalist: Dr. Maurice
[2019-01-24] MEDS: Acetaminophen 500 MG Tab PO SCH (12:14)
[2019-01-24] MEDS: Tamsulosin 0.4 MG Cap.ER PO SCH ×2 (13:07→13:19)
[2019-01-24] MEDS: Losartan 50 MG Tab PO SCH ×2 (13:07→13:19)
[2019-01-24] MEDS: Aspirin 81 MG Tab.EC PO SCH ×2 (13:08→13:19)
[2019-01-24] MEDS: Potassium Chloride 20 MEQ Tab.ER PO SCH ×4 (13:08→23:41)
[2019-01-24] MEDS: Haloperidol Lactate 5 MG/ML SDV IVPUSH PRN ×2 (13:45→20:46)
[2019-01-24] MEDS: cefTRIAXone 1 GM in Sodium Chloride 0.9% 50 ML IV SCH (17:52)
[2019-01-24] MEDS: Enoxaparin 30 MG/0.3 ML Syringe SUBCUT SCH (21:45)
[2019-01-24] MEDS: Melatonin 3 MG Tab PO SCH ×2 (21:59→23:41)
[2019-01-25] MEDS: Haloperidol Lactate 5 MG/ML SDV IVPUSH PRN (02:21)
[2019-01-25] MEDS: Sodium Chloride 0.9% 1,000 ML IV SCH (08:02)
[2019-01-25] MEDS: Pantoprazole 40 MG Tab.CR PO SCH (09:53)
--- NOTE | 2019-01-25 10:25 | PCM.PN ---
- General Info Date of Service: 01/25/19 Subjective Update: Ms. Zapata is continued to experience confusion with episodes of agitation. She has been hemodynamically stable over the last 24 hours with no significant temperature elevation. Because of confusion she is unable to provide meaningful history concerning symptoms or review of systems. - Patient Data Vitals - Most Recent: Last Vital Signs Temp 96.8 F 01/25/19 08:00 Pulse 71 01/25/19 08:00 Resp 16 01/25/19 08:00 BP 123/53 L 01/25/19 08:00 Pulse Ox 79 L 01/25/19 08:00 Weight - Most Recent: 153 lb 9.607 oz I&O - Last 24 Hours: Intake & Output 01/24/19 01/25/19 01/25/19 22:59 06:59 14:59 Intake Total 1041 669 Output Total 400 725 Balance 641 -56 Lab Results Last 24 Hours: Laboratory Results - last 24 hr 01/25/19 Range/Units 05:14 Sodium 134 L (140-148) mmol/L Potassium 3.6 (3.6-5.2) mmol/L Chloride 100 (100-108) mmol/L Carbon Dioxide 26 (21-32) mmol/L Anion Gap 11.6 (5.0-14.0) mmol/L BUN 10 (7-18) mg/dL Creatinine 0.7 (0.6-1.0) mg/dL Est Cr Clr Drug Dosing 45.19 mL/min Estimated GFR (MDRD) > 60 (>60) Glucose 101 (74-106) mg/dL Calcium 8.4 L (8.5-10.1) mg/dL Ryne Results Last 24 Hours: Microbiology 01/23/19 14:00 Urine Culture - Preliminary Urine, Catheterized MIXED ANN MARIE DAY 1 Med Orders - Current: Current Medications Acetaminophen (Tylenol Extra Strength) 500 mg PO DAILY [facility] Last Admin: 01/24/19 12:14 Dose: Not Given Aspirin (Halfprin) 81 mg PO DAILY [facility] Last Admin: 01/24/19 13:19 Dose: Not Given Belladonna Alkaloids/Opium (B & O Supprettes No. 15a) 1 supp RECTAL Q6H PRN PRN Reason: Spasms Last Admin: 01/23/19 22:33 Dose: 1 supp Divalproex Sodium (Depakote Sprinkle) 125 mg PO BIDMEALS [facility] Enoxaparin Sodium (Lovenox) 30 mg SUBCUT Q24H [facility] Last Admin: 01/24/19 21:45 Dose: 30 mg Haloperidol Lactate (Haldol) 1 mg IVPUSH Q2H PRN PRN Reason: Agitation Last Admin: 01/25/19 02:21 Dose: 1 mg Ceftriaxone Sodium 1 gm/ (Sodium Chloride) 50 mls @ 100 mls/hr IV Q24H [facility] Last Admin: 01/24/19 17:52 Dose: 100 mls/hr Losartan Potassium (Cozaar) 100 mg PO DAILY [facility] Last Admin: 01/24/19 13:19 Dose: Not Given Meclizine HCl (Antivert) 25 mg PO Q6H PRN PRN Reason: Dizziness Melatonin (Melatonin) 9 mg PO BEDTIME [facility] Last Admin: 01/24/19 23:41 Dose: 9 mg Mesalamine (Delzicol) 400 mg PO TID [facility] Last Admin: 01/24/19 23:40 Dose: 400 mg Pantoprazole Sodium (Protonix) 40 mg PO DAILY@0730 [facility] Last Admin: 01/25/19 09:53 Dose: Not Given Potassium Chloride (Klor-Con M20) 20 meq PO BID [facility] Last Admin: 01/24/19 23:41 Dose: 20 meq Ranitidine HCl (Zantac) 150 mg PO DAILY [facility] Last Admin: 01/24/19 13:20 Dose: Not Given Sodium Chloride (Saline Flush) 10 ml FLUSH ASDIRECTED PRN PRN Reason: Keep Vein Open Tamsulosin HCl (Flomax) 0.4 mg PO DAILY [facility] Last Admin: 01/24/19 13:19 Dose: Not Given Discontinued Medications Cephalexin (Keflex) 500 mg PO ONETIME ONE Stop: 01/23/19 13:58 Last Admin: 01/23/19 14:18 Dose: 500 mg Haloperidol Lactate (Haldol) 0.5 mg IVPUSH Q4H PRN PRN Reason: Agitation Last Admin: 01/23/19 23:36 Dose: 0.5 mg Hydrochlorothiazide (Hydrochlorothiazide) 12.5 mg PO DAILY [facility] Last Admin: 01/24/19 12:41 Dose: Not Given Ceftriaxone Sodium 1 gm/ (Sodium Chloride) 50 mls @ 100 mls/hr IV ONETIME ONE Stop: 01/23/19 18:07 Last Admin: 01/23/19 18:32 Dose: 100 mls/hr Sodium Chloride (Normal Saline) 1,000 mls @ 125 mls/hr IV ASDIRECTED [facility] Last Admin: 01/24/19 03:28 Dose: 125 mls/hr Sodium Chloride (Normal Saline) 1,000 mls @ 50 mls/hr IV ASDIRECTED [facility] Last Admin: 01/25/19 08:02 Dose: 50 mls/hr Lorazepam (Ativan) 1 mg IVPUSH Q4H PRN PRN Reason: Agitation Last Admin: 01/23/19 22:29 Dose: 1 mg Lorazepam (Ativan) 1 mg IVPUSH Q2H PRN PRN Reason: Agitation Last Admin: 01/24/19 05:05 Dose: 1 mg Melatonin (Melatonin) 6 mg PO BEDTIME [facility] Last Admin: 01/23/19 21:26 Dose: 6 mg Morphine Sulfate (Morphine) 1 mg IVPUSH Q2H [facility] Last Admin: 01/24/19 01:46 Dose: Not Given Morphine Sulfate (Morphine) 1 mg IVPUSH Q2H PRN PRN Reason: Pain Last Admin: 01/24/19 07:43 Dose: 1 mg Pantoprazole Sodium (Protonix Iv) 40 mg IVPUSH DAILY [facility] Last Admin: 01/24/19 08:42 Dose: 40 mg Phenazopyridine HCl (Urinary Pain Relief) 190 mg PO TIDPC PRN PRN Reason: Spasms Risperidone (Risperidal) 0.5 mg PO ONETIME ONE Stop: 01/23/19 17:36 Last Admin: 01/23/19 18:35 Dose: 0.5 mg Risperidone (Risperidal) Confirm Administered Dose 0.5 mg .ROUTE .STK-MED ONE Stop: 01/23/19 18:21 Last Admin: 01/23/19 18:36 Dose: Not Given - Exam Quality Assessment: Urine Catheter, DVT Prophylaxis General: Sedated, Lethargic Lungs: Clear to Auscultation, Normal Respiratory Effort Cardiovascular: Regular Rate, Regular Rhythm, No Murmurs GI/Abdominal Exam: Soft, Non-Tender, No Organomegaly, No Distention Extremities: Non-Tender, Pedal Edema - Problem List Review Problem List Initiated/Reviewed/Updated: Yes - My Orders Last 24 Hours: My Active Orders 01/24/19 09:50 PT Evaluation and Treatment [CONS] Routine 01/24/19 09:55 Haloperidol Lactate [Haldol] 1 mg IVPUSH Q2H PRN 01/24/19 21:00 Melatonin 9 mg PO BEDTIME 01/25/19 07:30 Pantoprazole [ProTONIX] 40 mg PO DAILY@0730 01/25/19 09:34 Convert IV to Saline Lock [OM.PC] Routine 01/25/19 17:00 Divalproex Sodium [Depakote Sprinkle] 125 mg PO BIDMEALS - Plan Plan:: ASSESSMENT / PLAN Urinary Tract Infection: with history of urinary retention and bladder prolapse. Urine culture thus far growing only mixed ann marie -Saline lock IV -IV Antibiotic; Rocephin 1 gram IV every 24 hours, pending culture results -varela cath placed because of urinary retention -blood cultures x2 pending -urine culture pending Hyponatremia-likely secondary to hydrochlorothiazide. Improved following hydration Hypertension -Cozaar 100 mg by mouth daily -vital signs every 4 hours Schizo affective disorder- in remission, increased confusion. Continues to experience episodes of agitation. -Depakote 125 mg by mouth twice daily -monitor closely -Haldol 1 mg IV every 2 hours as needed for agitation -Melatonin 9 mg po at hs Hard of Hearing -Nursing staff has been using [place] [employer] with limited success Maintenance issues -Orders home meds: chronic medication -Nutrition: regular soft diet -Varela catheter, indwelling cath because of urinary retention -DVT: Levonox 30 units subcut -PPI; IV Protonix 40mg daily CODE STATUS: DNR/DNI Admission status: Admit to [address] [place] [address] Admission justification. This patient will be admitted for inpatient services and is medically appropriate meeting medical necessity for inpatient admission as outlined in my documentation. I reasonably expect the patient will require inpatient services that span. Time over 2 midnights. I reasonably expect this patient to be discharged or transferred within 96 hours after admission to the [facility]. Disposition:Carriage Assisted Living or Halfway Placement Primary care provider: Dr. Sorto Hospitalist: Dr. Maurice
[2019-01-25] MEDS: Tamsulosin 0.4 MG Cap.ER PO SCH (10:48)
[2019-01-25] MEDS: Acetaminophen 500 MG Tab PO SCH (10:49)
[2019-01-25] MEDS: Losartan 50 MG Tab PO SCH (10:49)
[2019-01-25] MEDS: Aspirin 81 MG Tab.EC PO SCH (10:49)
[2019-01-25] MEDS: Potassium Chloride 20 MEQ Tab.ER PO SCH ×2 (10:49→19:30)
[2019-01-25] MEDS: Divalproex Sodium Delayed-Release 125 MG Cap.Sprink PO SCH (16:16)
[2019-01-25] MEDS: cefTRIAXone 1 GM in Sodium Chloride 0.9% 50 ML IV SCH (18:06)
[2019-01-25] MEDS: Enoxaparin 30 MG/0.3 ML Syringe SUBCUT SCH (19:30)
[2019-01-25] MEDS: Melatonin 3 MG Tab PO SCH (19:30)
[2019-01-26] MEDS ORDERED: Bisacodyl 10 MG Supp RECTAL PRN (06:10)
[2019-01-26] MEDS ORDERED: Sodium Phosphate,Monobasic/Sodium Phosphate,Dibasic Enema 133 ML Bottle RECTAL PRN (06:10)
[2019-01-26 07:35] VITALS: PULSE 80
[2019-01-26] MEDS: Pantoprazole 40 MG Tab.CR PO SCH (08:46)
[2019-01-26] MEDS: Acetaminophen 500 MG Tab PO SCH (08:53)
[2019-01-26] MEDS: Potassium Chloride 20 MEQ Tab.ER PO SCH (08:53)
[2019-01-26] MEDS: Aspirin 81 MG Tab.EC PO SCH (08:53)
[2019-01-26] MEDS: Tamsulosin 0.4 MG Cap.ER PO SCH (08:53)
[2019-01-26] MEDS: Divalproex Sodium Delayed-Release 125 MG Cap.Sprink PO SCH (08:54)
[2019-01-26] MEDS: Losartan 50 MG Tab PO SCH (08:54)
[2019-01-26 08:58] VITALS: BP 147/83
--- NOTE | 2019-01-26 09:28 | PCM.DCSUM1 ---
Discharge Summary - Hospital Course Brief History: Ms. Zapata is an 83-year-old woman who was admitted through the emergency department with increased confusion and agitation felt to be secondy to urinary tract infection. - Discharge Data Discharge Date: 01/26/19 Discharge Disposition: DC/Tfer to [facility] 63 Condition: Fair - Discharge Diagnosis/Problem(s) (1) Urinary retention SNOMED Code(s): 156408087 ICD Code: R33.9 - RETENTION OF URINE, UNSPECIFIED Status: Acute Current Visit: Yes (2) Bladder prolapse SNOMED Code(s): 110793951 ICD Code: [id number] - Status: Acute Current Visit: Yes (3) Altered mental status, unspecified SNOMED Code(s): 664764263 ICD Code: R41.82 - ALTERED MENTAL STATUS, UNSPECIFIED Status: Acute Current Visit: Yes (4) Schizoaffective disorder SNOMED Code(s): 80677249 ICD Code: F25.9 - SCHIZOAFFECTIVE DISORDER, UNSPECIFIED Status: Chronic Current Visit: No Qualifiers: Schizoaffective disorder type: unspecified Qualified Code(s): F25.9 - Schizoaffective disorder, unspecified - Patient Summary/Data Consults: Consultations 01/24/19 09:50 PT Evaluation and Treatment [CONS] Routine Please Evaluate and Treat. PT Reason for Consult: Strengthening Pending Discharge: Yes Discharge Disposition: Home w Home Health Special Instructions: lives at [facility] This query below is only for informational purposes and is not editable. Admission Diagnosis/Problem: Urinary tract infection Hospital Course: Ms. Zapata is an 83-year-old woman who was admitted through the emergency department with weakness and agitation secondary to underlying urinary tract infection. She resides at a local assisted living facility and does have underlying dementia, she was unable to provide a meaningful history concerning recent symptoms systems. On admission, urine culture was obtained and she was started on IV antibiotic therapy with ceftriaxone. IV fluids were initiated for the first few days of hospitalization. She continued to experience difficulty with agitation requiring intermittent use of IV Haldol. She was started on melatonin at night as well as Depakote 125 mg twice daily. With these interventions behavior settled down and she had no further agitation. She was interactive at the time of discharge and eating well. Urine culture growing only mixed ann marie so antibiotic therapy was discontinued and she was not felt to have had an actual urinary tract infection. Activity will be as tolerated and she will resume her usual diet. She was noted to have urinary retention at the time of admission as well as bladder prolapse. Packer catheter was placed and will be left in until she is able to see urology for follow-up appointment concerning urinary retention. Activity will be as tolerated and she will resume her usual diet. Follow-up appointment will be scheduled with her primary care provider within one week. She should also have follow-up appointment scheduled with urology concerning urinary retention. - Patient Instructions Diet: Regular Diet as Tolerated Activity: As Tolerated Other/Special Instructions: FU appt. w/ primary care w/in 1 week. Please schedule Urology consult for evaluation of urinary retention and bladder prolapse. - Discharge Plan *PRESCRIPTION DRUG MONITORING PROGRAM REVIEWED*: No *COPY OF PRESCRIPTION DRUG MONITORING REPORT IN PATIENT ARMANDO: No Prescriptions/Med Rec: Divalproex Sodium [Depakote Sprinkle] 125 mg PO BIDMEALS #60 cap.sprink Melatonin 6 mg PO BEDTIME #60 tablet Home Medications: Home Meds Acetaminophen [Tylenol Extra Strength] 500 mg PO DAILY 12/23/16 [History] Aspirin [Adult Low Dose Aspirin EC] 81 mg PO DAILY 12/23/16 [History] Calcium Carbonate/Vitamin D3 [Calcium 600 + Vit D 400 Softgl] 1 tab PO BID 12/23 [History] Ceravite 1 tab PO DAILY 12/23/16 [History] Cyanocobalamin (Vitamin B-12) [Cyanocobalamin Injection] 1,000 mcg IM ASDIRECTED 12/23/16 [History] Loratadine 10 mg PO DAILY 12/23/16 [History] Losartan/Hydrochlorothiazide [Losartan-HCTZ 100-12.5 MG] 1 tab PO DAILY [History] Potassium Chloride 20 meq PO BID 12/23/16 [History] Ranitidine [Zantac] 150 mg PO DAILY 12/23/16 [History] Tamsulosin HCl [Flomax] 0.4 mg PO DAILY 12/23/16 [History] Meclizine HCl 25 mg PO Q6H PRN #30 tablet 12/25/16 [Rx] Lactose-Reduced Food [Ensure] 237 ml PO BID 01/23/19 [History] Mesalamine [Delzicol] 400 mg PO TID 01/23/19 [History] Oxybutynin 2.5 mg PO BID 01/23/19 [History] Divalproex Sodium [Depakote Sprinkle] 125 mg PO BIDMEALS #60 cap.sprink [Rx] Melatonin 6 mg PO BEDTIME #60 tablet 01/26/19 [Rx] Referrals: Carlos Sorto MD [Primary Care Provider] - 01/31/19 1:30 pm (Please arrive 15 minutes early to register for appointment.) Sandy Eugene NP [Ordering Only Provider] - 04/19/19 1:30 pm (Please arrive 15 minutes early to register for your appointment. Appointment will be at [facility].) - Discharge Summary/Plan Comment DC Time >30 min.: No - Patient Data Vitals - Most Recent: Last Vital Signs Temp 98 F 01/26/19 07:33 Pulse 80 01/26/19 07:33 Resp 18 01/26/19 07:33 BP 147/83 H 01/26/19 08:54 Pulse Ox 98 01/26/19 07:33 Weight - Most Recent: 153 lb 9.607 oz I&O - Last 24 hours: Intake & Output 01/25/19 01/26/19 01/26/19 22:59 06:59 14:59 Intake Total 570 Output Total 150 400 Balance 420 -400 FAMILIA Results - Last 24 hrs: Microbiology 01/23/19 14:00 Urine Culture - Final Urine, Catheterized MIXED ANN MARIE DAY 2 Med Orders - Current: Current Medications Acetaminophen (Tylenol Extra Strength) 500 mg PO DAILY [facility] Last Admin: 01/26/19 08:53 Dose: 500 mg Aspirin (Halfprin) 81 mg PO DAILY [facility] Last Admin: 01/26/19 08:53 Dose: 81 mg Belladonna Alkaloids/Opium (B & O Supprettes No. 15a) 1 supp RECTAL Q6H PRN PRN Reason: Spasms Last Admin: 01/23/19 22:33 Dose: 1 supp Bisacodyl (Dulcolax) 10 mg RECTAL BID PRN PRN Reason: Constipation Last Admin: 01/26/19 08:42 Dose: 10 mg Divalproex Sodium (Depakote Sprinkle) 125 mg PO BIDMEALS [facility] Last Admin: 01/26/19 08:54 Dose: 125 mg Enoxaparin Sodium (Lovenox) 30 mg SUBCUT Q24H [facility] Last Admin: 01/25/19 19:30 Dose: 30 mg Haloperidol Lactate (Haldol) 1 mg IVPUSH Q2H PRN PRN Reason: Agitation Last Admin: 01/25/19 02:21 Dose: 1 mg Losartan Potassium (Cozaar) 100 mg PO DAILY [facility] Last Admin: 01/26/19 08:54 Dose: 100 mg Meclizine HCl (Antivert) 25 mg PO Q6H PRN PRN Reason: Dizziness Melatonin (Melatonin) 9 mg PO BEDTIME [facility] Last Admin: 01/25/19 19:30 Dose: 9 mg Mesalamine (Delzicol) 400 mg PO TID [facility] Last Admin: 01/26/19 08:53 Dose: 400 mg Pantoprazole Sodium (Protonix) 40 mg PO DAILY@0730 [facility] Last Admin: 01/26/19 08:46 Dose: 40 mg Potassium Chloride (Klor-Con M20) 20 meq PO BID [facility] Last Admin: 01/26/19 08:53 Dose: 20 meq Ranitidine HCl (Zantac) 150 mg PO DAILY [facility] Last Admin: 01/26/19 08:53 Dose: 150 mg Sodium Biphosphate/Sodium Phosphate (Fleet Enema) 133 ml RECTAL ONETIME PRN PRN Reason: Constipation Sodium Chloride (Saline Flush) 10 ml FLUSH ASDIRECTED PRN PRN Reason: Keep Vein Open Tamsulosin HCl (Flomax) 0.4 mg PO DAILY [facility] Last Admin: 01/26/19 08:53 Dose: 0.4 mg Discontinued Medications Cephalexin (Keflex) 500 mg PO ONETIME ONE Stop: 01/23/19 13:58 Last Admin: 01/23/19 14:18 Dose: 500 mg Haloperidol Lactate (Haldol) 0.5 mg IVPUSH Q4H PRN PRN Reason: Agitation Last Admin: 01/23/19 23:36 Dose: 0.5 mg Hydrochlorothiazide (Hydrochlorothiazide) 12.5 mg PO DAILY [facility] Last Admin: 01/24/19 12:41 Dose: Not Given Ceftriaxone Sodium 1 gm/ (Sodium Chloride) 50 mls @ 100 mls/hr IV ONETIME ONE Stop: 01/23/19 18:07 Last Admin: 01/23/19 18:32 Dose: 100 mls/hr Sodium Chloride (Normal Saline) 1,000 mls @ 125 mls/hr IV ASDIRECTED [facility] Last Admin: 01/24/19 03:28 Dose: 125 mls/hr Ceftriaxone Sodium 1 gm/ (Sodium Chloride) 50 mls @ 100 mls/hr IV Q24H [facility] Last Admin: 01/25/19 18:06 Dose: 100 mls/hr Sodium Chloride (Normal Saline) 1,000 mls @ 50 mls/hr IV ASDIRECTED [facility] Last Admin: 01/25/19 08:02 Dose: 50 mls/hr Lorazepam (Ativan) 1 mg IVPUSH Q4H PRN PRN Reason: Agitation Last Admin: 01/23/19 22:29 Dose: 1 mg Lorazepam (Ativan) 1 mg IVPUSH Q2H PRN PRN Reason: Agitation Last Admin: 01/24/19 05:05 Dose: 1 mg Melatonin (Melatonin) 6 mg PO BEDTIME [facility] Last Admin: 01/23/19 21:26 Dose: 6 mg Morphine Sulfate (Morphine) 1 mg IVPUSH Q2H [facility] Last Admin: 01/24/19 01:46 Dose: Not Given Morphine Sulfate (Morphine) 1 mg IVPUSH Q2H PRN PRN Reason: Pain Last Admin: 01/24/19 07:43 Dose: 1 mg Pantoprazole Sodium (Protonix Iv) 40 mg IVPUSH DAILY [facility] Last Admin: 01/24/19 08:42 Dose: 40 mg Phenazopyridine HCl (Urinary Pain Relief) 190 mg PO TIDPC PRN PRN Reason: Spasms Risperidone (Risperidal) 0.5 mg PO ONETIME ONE Stop: 01/23/19 17:36 Last Admin: 01/23/19 18:35 Dose: 0.5 mg Risperidone (Risperidal) Confirm Administered Dose 0.5 mg .ROUTE .STK-MED ONE Stop: 01/23/19 18:21 Last Admin: 01/23/19 18:36 Dose: Not Given - Exam Quality Assessment: Reports: DVT Prophylaxis General: Reports: Alert, Cooperative, No Acute Distress. Denies: Oriented Lungs: Reports: Clear to Auscultation, Normal Respiratory Effort Cardiovascular: Reports: Regular Rate, Regular Rhythm, No Murmurs GI/Abdominal Exam: Soft, Non-Tender, No Organomegaly, No Distention Extremities: Non-Tender, No Pedal Edema
== END 2019-01-26 14:15 | DRG 696 ==
LOC: JP.ED 12:03 → JP.MS 19:06
PROVIDERS: ADMIT Hospitalist; ATTEND Hospitalist
DX: R33.9 Retention of urine, unspecified (principal); E87.1 Hypo-osmolality and hyponatremia; Z66 Do not resuscitate; R32 Unspecified urinary incontinence; N81.10 Cystocele, unspecified; R41.0 Disorientation, unspecified; I10 Essential (primary) hypertension; R35.0 Frequency of micturition; Z91.81 History of falling; R45.1 Restlessness and agitation; F03.90 Unspecified dementia, unspecified severity, without behavioral disturbance, psychotic disturbance, mood disturbance, and anxiety; F25.8 Other schizoaffective disorders; E53.8 Deficiency of other specified B group vitamins; M19.90 Unspecified osteoarthritis, unspecified site; Z86.718 Personal history of other venous thrombosis and embolism; H54.7 Unspecified visual loss; H91.93 Unspecified hearing loss, bilateral; Z96.651 Presence of right artificial knee joint; Z96.642 Presence of left artificial hip joint; Z88.1 Allergy status to other antibiotic agents; Z79.82 Long term (current) use of aspirin; Z79.01 Long term (current) use of anticoagulants; Z79.52 Long term (current) use of systemic steroids
CPT/HCPCS: 36415; 51702; 51798; 80048; 81001; 84484; 85027; 85610; 87086; 96365; 99284 ×2; A9270 ×2; J0696; J7030; J7050; 85025; 94762; 97162-GP; C9113; J1630; J1650; J2060; J2270

== ENCOUNTER 2019-02-09 19:38 | Emergency (ER) | payer MEDICARE, MEDICAID ==
--- NOTE | 2019-02-09 19:58 | EDM.PDOC ---
ED HPI GENERAL MEDICAL PROBLEM - General Chief Complaint: Genitourinary Problem Stated Complaint: MEDICAL Time Seen by Provider: 02/09/19 19:50 Source of Information: Reports: EMS History Limitations: Reports: Altered Mental Status - History of Present Illness INITIAL COMMENTS - FREE TEXT/NARRATIVE: Jodee is an 83 year old female, sent from [place] after she pulled out Packer catheter with balloon intact. This is reportedly the 6th time patient has done this, hx of schizophrenia and dementia, unable to provide hx. Reportedly there were no supplies available at facility to replace the catheter so she was sent here instead. Onset: Today, Sudden - Related Data Allergies Allergy/AdvReac Type Severity Reaction Status Date / Time amoxicillin Allergy Other Verified 02/09/19 20:11 Home Meds: Home Meds Acetaminophen [Tylenol Extra Strength] 500 mg PO DAILY 12/23/16 [History] Aspirin [Adult Low Dose Aspirin EC] 81 mg PO DAILY 12/23/16 [History] Calcium Carbonate/Vitamin D3 [Calcium 600 + Vit D 400 Softgl] 1 tab PO BID 12/23 [History] Ceravite 1 tab PO DAILY 12/23/16 [History] Cyanocobalamin (Vitamin B-12) [Cyanocobalamin Injection] 1,000 mcg IM ASDIRECTED 12/23/16 [History] Loratadine 10 mg PO DAILY 12/23/16 [History] Losartan/Hydrochlorothiazide [Losartan-HCTZ 100-12.5 MG] 1 tab PO DAILY [History] Potassium Chloride 20 meq PO BID 12/23/16 [History] Ranitidine [Zantac] 150 mg PO DAILY 12/23/16 [History] Tamsulosin HCl [Flomax] 0.4 mg PO DAILY 12/23/16 [History] Meclizine HCl 25 mg PO Q6H PRN #30 tablet 12/25/16 [Rx] Lactose-Reduced Food [Ensure] 237 ml PO BID 01/23/19 [History] Mesalamine [Delzicol] 400 mg PO TID 01/23/19 [History] Oxybutynin 2.5 mg PO BID 01/23/19 [History] Divalproex Sodium [Depakote Sprinkle] 125 mg PO BIDMEALS #60 cap.sprink [Rx] Melatonin 6 mg PO BEDTIME #60 tablet 01/26/19 [Rx] Past Medical History HEENT History: Reports: Hard of Hearing, Impaired Vision, Macular Degeneration, Other (See Below) 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 Cardiovascular History: Reports: Blood Clots/VTE/DVT, Hypertension Gastrointestinal History: Reports: Other (See Below) Other Gastrointestinal History: ulcerative colitis Genitourinary History: Reports: Urinary Incontinence SPECIAL ED ASSISTANT History: Reports: Musculoskeletal History: Reports: Osteoarthritis, Other (See Below) Other Musculoskeletal History: 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 Psychiatric History: Reports: Other (See Below) Other Psychiatric History: schizo Affective disorder Hematologic History: Reports: B12 Deficiency - Past Surgical History HEENT Surgical History: Reports: Other (See Below) Other HEENT Surgeries/Procedures: right mastoidectomy Neurological Surgical History: Reports: Scoliosis Musculoskeletal Surgical History: Reports: Knee Replacement, Other (See Below) Other Musculoskeletal Surgeries/Procedures:: right knee replacement Social & Family History - Family History Family Medical History: Noncontributory - Caffeine Use Caffeine Use: Reports: Coffee ED ROS GENERAL - Review of Systems Review Of Systems: Unable To Obtain ED EXAM, RENAL/ - Physical Exam Exam: See Below Exam Limited By: Altered Mental Status General Appearance: Alert, No Apparent Distress Respiratory/Chest: No Respiratory Distress Cardiovascular: Normal Peripheral Pulses GI/Abdominal: Normal Bowel Sounds, Soft, Non-Tender (Female) Exam: Deferred Neurological: Alert Skin Exam: Warm, Dry, Intact Lymphatic: No Adenopathy Course - Vital Signs Last Recorded V/S: Last Vital Signs Temp 35.6 C 02/09/19 20:17 Pulse 89 02/09/19 20:17 Resp 16 02/09/19 20:17 BP 194/98 H 02/09/19 20:17 Pulse Ox 97 02/09/19 20:17 Jodee is an 83 year old female, hx of schizophrenia and dementia, here from [place] to have Packer replaced as she pulled hers out. Please refer to HPI and focused exam. Packer catheter placed per nursing staff without difficulty, good urine return. Patient discharged back to [place] in stable condition. - Orders/Labs/Meds Orders: Active Orders 24 hr Category Date Time Status Packer Catheter Insertion [Insert Urinary Catheter] [OM. Care 02/09/19 20:00 Ordered PC] Q24H Urinary Catheter Assessment [RC] ASDIRECTED Care 02/09/19 19:54 Active Departure - Departure Time of Disposition: 22:00 Disposition: DC/Tfer to SNF 03 Condition: Good Clinical Impression: Catheter (urine) change required - Discharge Information Referrals: PCP,None [Primary Care Provider] - Forms: ED Department Discharge - My Orders Last 24 Hours: My Active Orders 02/09/19 19:54 Urinary Catheter Assessment [RC] ASDIRECTED 02/09/19 20:00 Packer Catheter Insertion [Insert Urinary Catheter] [OM.PC] Q24H - Assessment/Plan Last 24 Hours: My Active Orders 02/09/19 19:54 Urinary Catheter Assessment [RC] ASDIRECTED 02/09/19 20:00 Packer Catheter Insertion [Insert Urinary Catheter] [OM.PC] Q24H
[2019-02-09 20:12] VITALS: BP 194/98; PULSE 89
== END 2019-02-09 21:10 ==
LOC: JP.ED 19:38
DX: T83.091A Other mechanical complication of indwelling urethral catheter, initial encounter (principal); I10 Essential (primary) hypertension; M19.90 Unspecified osteoarthritis, unspecified site; Z88.1 Allergy status to other antibiotic agents; Z79.82 Long term (current) use of aspirin; Z79.899 Other long term (current) drug therapy
CPT/HCPCS: 51702; 51798; 99283; 99284

== ENCOUNTER 2019-02-16 19:48 | Emergency (ER) | payer MEDICARE, MEDICAID ==
[2019-02-16 20:01] VITALS: BP 169/90; PULSE 73
--- NOTE | 2019-02-16 20:28 | EDM.PDOC ---
ED HPI GENERAL MEDICAL PROBLEM - General Chief Complaint: Genitourinary Problem Stated Complaint: CATHETER Time Seen by Provider: 02/16/19 20:10 Source of Information: Reports: EMS History Limitations: Reports: Altered Mental Status - History of Present Illness INITIAL COMMENTS - FREE TEXT/NARRATIVE: This elderly female with a history of incontinence and dementia has an indwelling catheter for incontinence. She has a history of senile dementia. She lives in a snf. She self removed the catheter tonight. Into the ED this evening to replace it. No other problems. Onset: Today - Related Data Allergies Allergy/AdvReac Type Severity Reaction Status Date / Time amoxicillin Allergy Other Verified 02/16/19 19:53 Home Meds: Home Meds Acetaminophen [Tylenol Extra Strength] 500 mg PO DAILY 12/23/16 [History] Aspirin [Adult Low Dose Aspirin EC] 81 mg PO DAILY 12/23/16 [History] Calcium Carbonate/Vitamin D3 [Calcium 600 + Vit D 400 Softgl] 1 tab PO BID 12/23 [History] Ceravite 1 tab PO DAILY 12/23/16 [History] Cyanocobalamin (Vitamin B-12) [Cyanocobalamin Injection] 1,000 mcg IM ASDIRECTED 12/23/16 [History] Loratadine 10 mg PO DAILY 12/23/16 [History] Losartan/Hydrochlorothiazide [Losartan-HCTZ 100-12.5 MG] 1 tab PO DAILY [History] Potassium Chloride 20 meq PO BID 12/23/16 [History] Ranitidine [Zantac] 150 mg PO DAILY 12/23/16 [History] Tamsulosin HCl [Flomax] 0.4 mg PO DAILY 12/23/16 [History] Meclizine HCl 25 mg PO Q6H PRN #30 tablet 12/25/16 [Rx] Lactose-Reduced Food [Ensure] 237 ml PO BID 01/23/19 [History] Mesalamine [Delzicol] 400 mg PO TID 01/23/19 [History] Oxybutynin 2.5 mg PO BID 01/23/19 [History] Divalproex Sodium [Depakote Sprinkle] 125 mg PO BIDMEALS #60 cap.sprink [Rx] Melatonin 6 mg PO BEDTIME #60 tablet 01/26/19 [Rx] Past Medical History HEENT History: Reports: Hard of Hearing, Impaired Vision, Macular Degeneration, Other (See Below) 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 Cardiovascular History: Reports: Blood Clots/VTE/DVT, Hypertension Gastrointestinal History: Reports: Other (See Below) Other Gastrointestinal History: ulcerative colitis Genitourinary History: Reports: Retention, Urinary, Urinary Incontinence, Other (See Below) Other Genitourinary History: chronic indwelling catheter 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: Musculoskeletal History: Reports: Osteoarthritis, Other (See Below) Other Musculoskeletal History: 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 Psychiatric History: Reports: Other (See Below) Other Psychiatric History: schizo Affective disorder Hematologic History: Reports: B12 Deficiency - Past Surgical History HEENT Surgical History: Reports: Other (See Below) Other HEENT Surgeries/Procedures: right mastoidectomy Neurological Surgical History: Reports: Scoliosis Musculoskeletal Surgical History: Reports: Knee Replacement, Other (See Below) Other Musculoskeletal Surgeries/Procedures:: right knee replacement Social & Family History - Family History Family Medical History: Noncontributory - Tobacco Use Smoking Status *Q: Unknown Ever Smoked - Caffeine Use Caffeine Use: Reports: Coffee ED ROS GENERAL - Review of Systems Review Of Systems: Unable To Obtain ED EXAM, RENAL/ - Physical Exam Exam: See Below Exam Limited By: Altered Mental Status General Appearance: Alert Respiratory/Chest: No Respiratory Distress Cardiovascular: Regular Rate, Rhythm GI/Abdominal: Soft Course - Vital Signs Last Recorded V/S: Last Vital Signs Temp 36.1 C 02/16/19 19:59 Pulse 73 02/16/19 19:59 Resp 20 02/16/19 19:59 BP 169/90 H 02/16/19 19:59 Pulse Ox 97 02/16/19 19:59 This patient was seen. A new indwelling varela was inserted. She has no other problems. She is discharged back to the snf. Departure - Departure Time of Disposition: 20:30 Disposition: DC/Tfer to [facility] 63 Condition: Good Clinical Impression: Indwelling catheter replaced - Discharge Information *PRESCRIPTION DRUG MONITORING PROGRAM REVIEWED*: Not Applicable *COPY OF PRESCRIPTION DRUG MONITORING REPORT IN PATIENT ARMANDO: Not Applicable Referrals: PCP,None [Primary Care Provider] - Forms: ED Department Discharge
== END 2019-02-16 21:37 ==
LOC: JP.ED 19:48
DX: Z46.6 Encounter for fitting and adjustment of urinary device (principal); I10 Essential (primary) hypertension; Z88.1 Allergy status to other antibiotic agents; Z79.82 Long term (current) use of aspirin; Z79.899 Other long term (current) drug therapy; Z86.718 Personal history of other venous thrombosis and embolism
CPT/HCPCS: 51702; 99283; 99284

== ENCOUNTER 2019-02-17 13:14 | Emergency (ER) | payer MEDICARE, MEDICAID ==
[2019-02-17 13:45] VITALS: BP 138/78; PULSE 75
--- NOTE | 2019-02-17 13:57 | EDM.PDOC ---
ED HPI GENERAL MEDICAL PROBLEM - General Chief Complaint: Genitourinary Problem Stated Complaint: BLADDER ISSUES Time Seen by Provider: 02/17/19 13:40 Source of Information: Reports: [facility] Records History Limitations: Reports: Altered Mental Status - History of Present Illness INITIAL COMMENTS - FREE TEXT/NARRATIVE: This elderly demented female has an indwelling catheter per directions of urology. It is supposed to be in until April. The patient self-removes the catheter several times a week. She did it last night and had the catheter replaced. She does not have any other problems. She lives at an assisted living facility. - Related Data Allergies Allergy/AdvReac Type Severity Reaction Status Date / Time amoxicillin Allergy Other Verified 02/17/19 13:27 Home Meds: Home Meds Acetaminophen [Tylenol Extra Strength] 500 mg PO DAILY 12/23/16 [History] Aspirin [Adult Low Dose Aspirin EC] 81 mg PO DAILY 12/23/16 [History] Calcium Carbonate/Vitamin D3 [Calcium 600 + Vit D 400 Softgl] 1 tab PO BID 12/23 [History] Ceravite 1 tab PO DAILY 12/23/16 [History] Cyanocobalamin (Vitamin B-12) [Cyanocobalamin Injection] 1,000 mcg IM ASDIRECTED 12/23/16 [History] Loratadine 10 mg PO DAILY 12/23/16 [History] Losartan/Hydrochlorothiazide [Losartan-HCTZ 100-12.5 MG] 1 tab PO DAILY [History] Potassium Chloride 20 meq PO BID 12/23/16 [History] Ranitidine [Zantac] 150 mg PO DAILY 12/23/16 [History] Tamsulosin HCl [Flomax] 0.4 mg PO DAILY 12/23/16 [History] Meclizine HCl 25 mg PO Q6H PRN #30 tablet 12/25/16 [Rx] Lactose-Reduced Food [Ensure] 237 ml PO BID 01/23/19 [History] Mesalamine [Delzicol] 400 mg PO TID 01/23/19 [History] Oxybutynin 2.5 mg PO BID 01/23/19 [History] Divalproex Sodium [Depakote Sprinkle] 125 mg PO BIDMEALS #60 cap.sprink [Rx] Melatonin 6 mg PO BEDTIME #60 tablet 01/26/19 [Rx] Past Medical History HEENT History: Reports: Hard of Hearing, Impaired Vision, Macular Degeneration, Other (See Below) 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 Cardiovascular History: Reports: Blood Clots/VTE/DVT, Hypertension Gastrointestinal History: Reports: Other (See Below) Other Gastrointestinal History: ulcerative colitis Genitourinary History: Reports: Retention, Urinary, Urinary Incontinence, Other (See Below) Other Genitourinary History: chronic indwelling catheter 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: Musculoskeletal History: Reports: Osteoarthritis, Other (See Below) Other Musculoskeletal History: 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 Psychiatric History: Reports: Other (See Below) Other Psychiatric History: schizo Affective disorder Hematologic History: Reports: B12 Deficiency - Infectious Disease History Infectious Disease History: Reports: Chicken Pox - Past Surgical History HEENT Surgical History: Reports: Other (See Below) Other HEENT Surgeries/Procedures: right mastoidectomy Neurological Surgical History: Reports: Scoliosis Musculoskeletal Surgical History: Reports: Knee Replacement, Other (See Below) Other Musculoskeletal Surgeries/Procedures:: right knee replacement Social & Family History - Family History Family Medical History: Noncontributory - Tobacco Use Smoking Status *Q: Never Smoker Second Hand Smoke Exposure: No - Caffeine Use Caffeine Use: Reports: Coffee, Soda - Recreational Drug Use Recreational Drug Use: No ED ROS GENERAL - Review of Systems Review Of Systems: Unable To Obtain ED EXAM, RENAL/ - Physical Exam Exam: See Below Text/Narrative:: She does not have any new exam findings. She has an indwelling catheter ( examined after it was replaced). She is doing well and her vital signs are normal. Course - Vital Signs Last Recorded V/S: Last Vital Signs Temp 35.8 C 02/17/19 13:41 Pulse 75 02/17/19 13:41 Resp 16 02/17/19 13:41 BP 138/78 02/17/19 13:41 Pulse Ox 92 L 02/17/19 13:41 - Re-Assessments/Exams Free Text/Narrative Re-Assessment/Exam: 02/17/19 14:02 This patient frequently self-removes an indwelling catheter and again is here because she did it again today. The catheter was replaced and the patient has no other problems. She is discharged back to [facility] assisted living facility in stable condition. Departure - Departure Time of Disposition: 13:50 Disposition: Home, Self-Care 01 Condition: Good Clinical Impression: Indwelling catheter replaced - Discharge Information *PRESCRIPTION DRUG MONITORING PROGRAM REVIEWED*: Not Applicable *COPY OF PRESCRIPTION DRUG MONITORING REPORT IN PATIENT ARMANDO: Not Applicable Instructions: Indwelling Urinary Catheter Care, Adult Referrals: PCP,None [Primary Care Provider] - Forms: ED Department Discharge Additional Instructions: Follow previous instructions. Return to the ER as needed for problems or concerns.
== END 2019-02-17 14:30 | disposition home or self-care (01) ==
LOC: JP.ED 13:14
DX: Z46.6 Encounter for fitting and adjustment of urinary device (principal); I10 Essential (primary) hypertension; Z79.899 Other long term (current) drug therapy; Z79.82 Long term (current) use of aspirin
CPT/HCPCS: 51702; 99282

== ENCOUNTER 2020-01-14 18:29 | Emergency (ER) | payer MEDICARE, MEDICAID ==
--- NOTE | 2020-01-14 18:43 | EDM.PDOC ---
ED HPI GENERAL MEDICAL PROBLEM - General Chief Complaint: Head Injury Stated Complaint: FALL VIA [place] Time Seen by Provider: 01/14/20 18:30 Source of Information: Reports: Patient, EMS History Limitations: Reports: Physical Impairment (Patient has significant dementia) - History of Present Illness INITIAL COMMENTS - FREE TEXT/NARRATIVE: 84-year-old female took a tumble at the custodial falling hitting the back of her head on the floor. She has no pain, did not lose consciousness, they are not overly concerned about the fall but she has a small 2 cm laceration on the occipital scalp. It needs repair. No other concern for any other injury. Onset: Sudden Duration: Hour(s): (Within the last hour) Location: Reports: Head Associated Symptoms: Reports: No Other Symptoms - Related Data Allergies Allergy/AdvReac Type Severity Reaction Status Date / Time amoxicillin Allergy Other Verified 02/17/19 13:27 Home Meds: Home Meds Acetaminophen [Tylenol Extra Strength] 500 mg PO DAILY 12/23/16 [History] Aspirin [Adult Low Dose Aspirin EC] 81 mg PO DAILY 12/23/16 [History] Calcium Carbonate/Vitamin D3 [Calcium 600 + Vit D 400 Softgl] 1 tab PO BID 12/23/16 [History] Ceravite 1 tab PO DAILY 12/23/16 [History] Cyanocobalamin (Vitamin B-12) [Cyanocobalamin Injection] 1,000 mcg IM ASDIRECTED 12/23/16 [History] Loratadine 10 mg PO DAILY 12/23/16 [History] Losartan/Hydrochlorothiazide [Losartan-HCTZ 100-12.5 MG] 1 tab PO DAILY 12/23/16 [History] Potassium Chloride 20 meq PO BID 12/23/16 [History] Ranitidine [Zantac] 150 mg PO DAILY 12/23/16 [History] Tamsulosin HCl [Flomax] 0.4 mg PO DAILY 12/23/16 [History] Meclizine HCl 25 mg PO Q6H PRN #30 tablet 12/25/16 [Rx] Lactose-Reduced Food [Ensure] 237 ml PO BID 01/23/19 [History] Mesalamine [Delzicol] 400 mg PO TID 01/23/19 [History] Oxybutynin 2.5 mg PO BID 01/23/19 [History] Divalproex Sodium [Depakote Sprinkle] 125 mg PO BIDMEALS #60 cap.sprink 01/26/19 [Rx] Melatonin 6 mg PO BEDTIME #60 tablet 01/26/19 [Rx] Past Medical History HEENT History: Reports: Hard of Hearing, Impaired Vision, Macular Degeneration, Other (See Below) 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 Cardiovascular History: Reports: Blood Clots/VTE/DVT, Hypertension Gastrointestinal History: Reports: Other (See Below) Other Gastrointestinal History: ulcerative colitis Genitourinary History: Reports: Retention, Urinary, Urinary Incontinence, Other (See Below) Other Genitourinary History: chronic indwelling catheter [employer]ED [employer] History: Reports: Musculoskeletal History: Reports: Osteoarthritis, Other (See Below) Other Musculoskeletal History: 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 Psychiatric History: Reports: Other (See Below) Other Psychiatric History: schizo Affective disorder Hematologic History: Reports: B12 Deficiency - Infectious Disease History Infectious Disease History: Reports: Chicken Pox - Past Surgical History HEENT Surgical History: Reports: Other (See Below) Other HEENT Surgeries/Procedures: right mastoidectomy Neurological Surgical History: Reports: Scoliosis Musculoskeletal Surgical History: Reports: Knee Replacement, Other (See Below) Other Musculoskeletal Surgeries/Procedures:: right knee replacement Social & Family History - Family History Family Medical History: Noncontributory - Tobacco Use Smoking Status *Q: Never Smoker - Caffeine Use Caffeine Use: Reports: Coffee ED ROS GENERAL - Review of Systems Review Of Systems: See Below Constitutional: Denies: Fever, Chills Respiratory: Denies: Shortness of Breath Cardiovascular: Denies: Chest Pain GI/Abdominal: Denies: Abdominal Pain, Nausea, Vomiting Neurological: Denies: Headache ED EXAM, HEAD INJURY - Physical Exam Exam: See Below Exam Limited By: No Limitations General Appearance: Alert, No Apparent Distress Head: Other (There is a 2 cm laceration on the occipital scalp, no active bleeding) Eyes: Bilateral Eye: EOMI Neck: Non-Tender Respiratory: No Respiratory Distress Course - Vital Signs Last Recorded V/S: Last Vital Signs Temp 96.9 F 01/14/20 18:54 Pulse 76 01/14/20 18:54 Resp 18 01/14/20 18:54 BP 146/81 H 01/14/20 18:54 Pulse Ox 97 01/14/20 18:54 - Re-Assessments/Exams Free Text/Narrative Re-Assessment/Exam: 01/14/20 18:42 The hair was trimmed around the laceration and 2 kirk were placed without anesthesia. These can be removed in 7 days. Departure - Departure Time of Disposition: 19:43 Disposition: DC/Tfer to [facility] Clinical Impression: Occipital scalp laceration Qualifiers: Encounter type: initial encounter Qualified Code(s): S01.01XA - Laceration without foreign body of scalp, initial encounter - Discharge Information Instructions: Laceration Care, Adult Referrals: PCP,None [Primary Care Provider] - Forms: ED Department Discharge Care Plan Goals: [place] can be removed in 1 week. Return sooner if concerns of infection or not healing satisfactorily. Sepsis Event Note (ED) - Focused Exam Vital Signs: Vital Signs Temp Pulse Resp BP Pulse Ox 01/14/20 18:54 96.9 F 76 18 146/81 H 97
[2020-01-14 18:56] VITALS: BP 146/81; PULSE 76
== END 2020-01-14 19:44 ==
LOC: JP.ED 18:29
DX: S01.01XA Laceration without foreign body of scalp, initial encounter (principal); I10 Essential (primary) hypertension; M19.90 Unspecified osteoarthritis, unspecified site; Z79.899 Other long term (current) drug therapy; Z79.82 Long term (current) use of aspirin; Z88.1 Allergy status to other antibiotic agents; W19.XXXA Unspecified fall, initial encounter; W22.8XXA Striking against or struck by other objects, initial encounter; Y92.129 Unspecified place in nursing home as the place of occurrence of the external cause
CPT/HCPCS: 12001; 99282; 99284

== ENCOUNTER 2021-07-27 19:33 | Emergency (ER) | payer MEDICARE, MEDICAID ==
[2021-07-27 19:57] VITALS: BP 181/97; PULSE 84
[2021-07-27] MEDS ORDERED: Vitamins A and D Oint 56.7 GM Tube TOP ONE (20:39)
== END 2021-07-27 22:52 ==
LOC: JP.ED 19:33
DX: R10.2 Pelvic and perineal pain (principal); I10 Essential (primary) hypertension; Z88.0 Allergy status to penicillin; Z79.82 Long term (current) use of aspirin; Z79.899 Other long term (current) drug therapy
CPT/HCPCS: 99284; A9270